=== PATIENT | female | born 1995 | race Caucasian/White ===

== ENCOUNTER 2021-08-24 22:01 | Emergency (ER) | payer BC, SELFPAY ==
--- NOTE | ~2021-08-24 | XR_ITS ---
EXAMINATION: XR chest 1V portable DATE: 08/24/2021 23:27 INDICATION: Lower limb edema with discoloration. TECHNIQUE: A single frontal view of the chest was obtained. COMPARISON: None. FINDINGS: The chest demonstrates clear lungs without pneumonia, pleural effusion, or pneumothorax. Th e heart size is normal. IMPRESSION: 1. No acute cardiopulmonary disease. Reviewed, dictated and finalized at location A.
[2021-08-24 22:28] VITALS: BP 104/66; PULSE 63; RESP 20; TEMP 36.6; O2SAT 94
[2021-08-24 23:04] LABS: Basophils Percent Auto 0.3 % (0.2-1.2); Eosinophils Absolute Auto 0.5 K/mm3 (0-0.3); Eosinophils Percent Auto 7.9 % (0-4.4); Hematocrit 30.9 % (37.0-47.0); Hemoglobin 10.1 g/dL (12.0-15.0); Immature Granulocyte Absolute 0.01 K/mm3 (0.00-0.031); Immature Granulocyte Percent A 0.2 % (0-0.5); Lymphocytes Absolute Auto 2.01 K/mm3 (0.9-3.2); Lymphocytes Percent Auto 32.5 % (18.3-44.2); Mean Corpuscular HGB Conc 32.7 g/dl (32-36); Mean Corpuscular Hemoglobin 28.6 pg (26-34); Mean Corpuscular Volume 87.5 fl (80-100); Mean Platelet Volume 9.7 fl (7.4-10.4); Monocytes Absolute Auto 0.5 K/mm3 (0.1-0.6); Monocytes Percent Auto 8.1 % (2.6-8.5); Neutrophils Absolute Auto 3.2 K/mm3 (1.3-6.7); Platelet Count Result 214 k/mm3 (150-375); Red Blood Count 3.53 M/mm3 (4.2-5.4); Red Cell Distribution Width 12.9 % (11.5-14.5); White Blood Count 6.2 K/mm3 (4.5-10.0)
[2021-08-24 23:07] LABS: Add Urine Microscopic? YES; Amorphous Sediment Urine Few; Appearance Urine Cloudy (Clear); Bilirubin Urine Negative (Negative); Blood Urine Negative (Negative); Color Urine Yellow (Yellow); Glucose Urine UA Negative (Negative); Ketones Urine Negative (Negative); Leukocyte Esterase Ur Trace LEU/UL (Negative); Mucus Urine Rare /lpf; Nitrate Urine Negative (Negative); Protein Urine 1+ mg/dL (Negative); RBC Urine 0-2 /hpf (0-2); Specific Grav Ur 1.018 (1.001-1.035); Squamous Epithelial Cell Urine Many /hpf (Few); WBC Urine 0-3 /hpf
[2021-08-24 23:12] LABS: Alanine Aminotransferase 22 U/L (4-35); Albumin Level 3.8 g/dL (3.5-5.1); Alkaline Phosphatase 56 U/L (38-126); Anion Gap 4 mmol/L (8-16); Aspartate Amino Transferase 42 U/L (14-36); Bilirubin,Total 0.4 mg/dL (0.2-1.3); Blood Urea Nitrogen 12 mg/dL (7-17); Calcium 8.8 mg/dL (8.4-10.2); Carbon Dioxide 31 mmol/L (22-30); Chloride 108 mmol/L (98-107); Estimated CRCL calculation 92 ml/min; Estimated Glomerular Filt Rate > 60; Glucose 105 mg/dL (65-110); Potassium 4.4 mmol/L (3.4-5.0); Sodium 143 mmol/L (137-145)
[2021-08-24 23:19] LABS: NT Pro B Type Natriuretic Pept 702 pg/mL (5-100)
--- NOTE | 2021-08-24 23:29 | ECG_ITS ---
Measurements Intervals [place] Rate: 54 P: 16 IA: 122 QRS: 50 QRSD: 94 T: 32 QT: 440 QTc: 420 Interpretive Statements SINUS BRADYCARDIA BASELINE ARTIFACT- V2-V5 BORDERLINE ECG Electronically Signed On 08-25-2021 6:51:39 CDT by Jose Alberto D.O.
--- NOTE | 2021-08-24 23:55 | ED.GENADULT ---
HPI - General Adult General Chief complaint: Extremity Problem,Nontraumatic Stated complaint: lower extremity edema Time Seen by Provider: 08/24/21 22:32 Source: RN notes reviewed History of Present Illness HPI narrative: Patient presents emergency department from home for swelling of the bilateral lower extremities patient states symptoms began approximately 2 days ago. She states that with this she has noted some intermittent tingling in her right thigh she denies any pain in the right thigh and she denies any tingling in the bilateral lower extremities patient states she has had a kidney infection before in the past 1 to make sure she did have a kidney infection she denies any fevers or chills chest pain shortness of breath abdominal pain nausea vomiting or any other symptoms. Patient does admit to IV drug use and states that she has been sober and recently restarted using IV drugs Related Data Allergies Allergy/AdvReac Type Severity Reaction Status Date / Time No Known Allergies Allergy Unverified 04/26/14 15:03 Review of Systems Review of Systems: Gen.: Denies fevers or chills Eyes: Denies eye pain or visual change ENT: Denies congestion Respiratory: Denies shortness of breath or cough CV: Denies chest pain or palpitations GI: Denies abdominal pain nausea, emesis or diarrhea denies burning, urgency, frequency or hematuria Musculoskeletal: See HPI Neuro: Reports tingling in left thigh denies any other numbness Skin: Denies rash Except as documented, all other systems reviewed and negative [facility] Past Medical History Medical History (Updated 08/25/21 @ 00:52 by Chris Bourgeois DO) Patient denies significant medical history Social History Social History (Updated 08/25/21 @ 00:17 by Chris Bourgeois DO) Substance use type: IV drugs Exam Narrative: APPEARANCE: No acute distress, nontoxic, resting in bed EYES: EOMI HEENT: Normocephalic, atraumatic, OMM RESPIRATORY: No respiratory distress Clear to auscultation bilaterally with no rhonchi wheezing or rales. CARDIOVASCULAR: Regular rate and rhythm without murmurs rubs or gallops. ABDOMINAL: Soft, nontender, nondistended, no rebound or guarding MUSCULOSKELETAl: Moves all extremities. No clubbing, cyanosis 3+ edema the bilateral lower extremities bilateral calves are soft nontender bilateral dorsalis pedis pulse 2+ NEURO: Awake and alert. Following commands, speech normal, no focal deficits equal pinprick sensation in the bilateral lower extremities from the thighs down to the feet, muscle strength 5 out of 5 in bilateral lower extremities SKIN:: Warm, dry. No rashes lesions or abrasions PSYCHIATRIC: Normal affect/mood, Course Course Emergency Course: Discussed with Dr. Sommers for hospitalist service at this time no chest pain or shortness of breath feels like the patient may be discharged with a echocardiogram set up as an outpatient for further evaluation of endocarditis : Discussed with Dr. Suarez primary care physician international student counselor agrees with plan for follow-up as an outpatient Discussed with patient results of workup and diagnosis. Discussed need for follow-up with primary care, proper use of medication, and reasons to return to the emergency department. Patient understands and agrees to current treatment plan discussed with patient concern with elevated BNP that need to rule out endocarditis need for outpatient echo all questions answered Vital Signs Vital signs: Vital Signs Temperature 97.8 F 08/24/21 22:28 Pulse Rate 63 08/24/21 22:28 Respiratory Rate 20 08/24/21 22:28 Blood Pressure 104/66 08/24/21 22:28 Pulse Oximetry 94 08/24/21 22:28 Temperature 97.8 F 08/24/21 22:28 Pulse Rate 63 08/24/21 22:28 Respiratory Rate 20 08/24/21 22:28 Blood Pressure 104/66 08/24/21 22:28 Pulse Oximetry 94 08/24/21 22:28 Medical Decision Making MDM Narrative Medical decision making narrative: Patient presents for swelling in the bilater
[2021-08-24 23:58] LABS: Troponin I < 0.012 ng/mL (0.000-0.034)
== END 2021-08-25 01:05 | disposition home or self-care (01) ==
PROVIDERS: Emergency Provider Emergency Medicine
DX: R60.0 Localized edema (principal)
CPT/HCPCS: 36415; 71045; 80053; 81001; 81025; 83735; 83880; 84484; 85025; 93005; 99284

== ENCOUNTER 2022-03-02 12:29 | Emergency (ER) | payer BC, SELFPAY ==
[2022-03-02 12:41] VITALS: BP 112/65; PULSE 96; RESP 16; TEMP 36.8; O2SAT 92
--- NOTE | 2022-03-02 13:38 | ED.ABDPAIN ---
HPI - Abdominal Pain General Chief Complaint: Abdominal Pain Stated Complaint: abdominal pain Time Seen by Provider: 03/02/22 13:05 Source: patient History of Present Illness HPI narrative: Patient presents with pelvic pain and vaginal bleeding. She reports she has had pain and vaginal discharge for the past 3 days it feels like it is getting worse so she came to the ER for evaluation. She reports dark red discharge denies any vaginal itching or burning she does report some lower abdominal/pelvic cramping. She had her menstrual cycle a couple weeks ago she also reports recent treatment for STIs. Denies any fevers or chills denies any nausea vomiting or diarrhea denies any known sick contacts denies any urinary symptoms Related Data Home Medications Medication Instructions Recorded Confirmed buprenorphine-naloxone 1 tablet SUBLINGUAL BID 03/02/22 03/02/22 Allergies Allergy/AdvReac Type Severity Reaction Status Date / Time No Known Allergies Allergy Unverified 09/02/21 08:30 Review of Systems Review of Systems: CONSTITUTIONAL: Denies fever, chills, or sweats. EYES: Denies visual changes, redness, or discharge. ENT: Denies rhinorrhea, congestion, sore throat, or otalgia. CARDIOVASCULAR: Denies chest pain, palpitations, or edema. RESPIRATORY: Denies cough or dyspnea. GASTROINTESTINAL: Denies abdominal pain, nausea, vomiting, or diarrhea. GENITOURINARY: Denies dysuria or hematuria. SKIN: Denies rash or itching. MUSCULOSKELETAL: Denies back pain, joint pain, or myalgia. NEUROLOGIC: Denies headache, numbness, dizziness, or weakness. PSYCHIATRIC: Denies anxiety or depression. All systems reviewed & are unremarkable except as noted in HPI and below PMFSH Past Medical History Medical History IV drug user Patient denies significant medical history Family History Family History Mother Hypertension Depression Anxiety Father Depression Anxiety Alcohol abuse Sibling Anxiety Depression Alcohol abuse Grandparent Alcohol abuse Diabetes mellitus Hypertension Social History Social History Social History: Caffeine-coffee/tea 2 cups daily Smoking packs per day: 0.5 Smoking cigarettes per day: 10.0 Years smoked: 7 Smoking pack-years: 3.50 Smoking status: Current every day smoker Tobacco type: cigarettes and smokeless tobacco Alcohol intake: never Substance use type: IV drugs Gender identity (if verbalized by the patient): Female Agree to blood products: No Exam Narrative: GENERAL: Well-appearing, well-nourished, and in no acute distress. HEAD: Normocephalic, atraumatic. EYES: PERRLA and EOMI. ENT: Nares clear, no rhinorrhea or epistaxis. Mucous membranes moist. NECK: Supple. No masses. No JVD ABDOMEN: Soft, nontender, nondistended EXTREMITIES: Normal range of motion. No edema. SKIN: Warm, dry, no rash. NEURO: No focal deficits. Alert and oriented x3. PSYCH: Normal mood and affect. Course Reevaluation(s) Reevaluation #1: Patient resting comfortably. Patient did decline pelvic exam and preferred to self swab. She denied any empiric antibiotic treatment would like to follow-up with her results before starting antibiotics that she reports she was recently treated. Labs and work-up reviewed with patient. Patient is comfortable outpatient plan. Date: 03/02/22 Time: 15:16 Vital Signs Vital signs: Vital Signs Temperature 36.8 C 03/02/22 12:41 Pulse Rate 96 03/02/22 12:41 Respiratory Rate 16 03/02/22 12:41 Blood Pressure 112/65 03/02/22 12:41 Pulse Oximetry 92 03/02/22 12:41 Temperature 36.8 C 03/02/22 12:41 Pulse Rate 77 03/02/22 15:46 Respiratory Rate 16 03/02/22 15:46 Blood Pressure 122/74 03/02/22 15:46 Pulse Oximetry 100 03/02/22 15:46 MDM - Abdominal Pain MDM Julio César
[2022-03-02 13:48] LABS: Basophils Percent Auto 0.6 % (0.2-1.2); Eosinophils Absolute Auto 0.3 K/mm3 (0-0.3); Eosinophils Percent Auto 6.7 % (0-4.4); Hemoglobin 13.5 g/dL (12.0-15.0); Immature Granulocyte Absolute 0.01 K/mm3 (0.00-0.031); Immature Granulocyte Percent A 0.2 % (0-0.5); Lymphocytes Absolute Auto 2.22 K/mm3 (0.9-3.2); Mean Corpuscular HGB Conc 34.6 g/dl (32-36); Mean Corpuscular Hemoglobin 29.4 pg (26-34); Mean Platelet Volume 9.7 fl (7.4-10.4); Monocytes Absolute Auto 0.2 K/mm3 (0.1-0.6); Monocytes Percent Auto 4.4 % (2.6-8.5); Neutrophils Absolute Auto 2.2 K/mm3 (1.3-6.7); Neutrophils Percent Auto 44.1 % (45.5-73.1); Platelet Count Result 226 k/mm3 (150-375); Red Blood Count 4.59 M/mm3 (4.2-5.4); Red Cell Distribution Width 12.8 % (11.5-14.5)
[2022-03-02 13:57] LABS: Appearance Urine Clear (Clear); Bilirubin Urine 1+ (Negative); Blood Urine Negative (Negative); Glucose Urine UA Negative (Negative); Ketones Urine Trace mg/dL (Negative); Leukocyte Esterase Ur Negative LEU/UL (Negative); Nitrate Urine Negative (Negative); Protein Urine Negative (Negative); Specific Grav Ur >= 1.030 (1.001-1.035); pH Urine 5.5 (5.0-9.0)
[2022-03-02 14:00] LABS: Alanine Aminotransferase 20 U/L (4-35); Albumin Level 4.2 g/dL (3.5-5.1); Alkaline Phosphatase 52 U/L (38-126); Anion Gap 8 mmol/L (8-16); Aspartate Amino Transferase 33 U/L (14-36); Bilirubin,Total 0.8 mg/dL (0.2-1.3); Blood Urea Nitrogen 15 mg/dL (7-17); Calcium 9.1 mg/dL (8.4-10.2); Carbon Dioxide 26 mmol/L (22-30); Chloride 104 mmol/L (98-107); Estimated CRCL calculation 88 ml/min; Estimated Glomerular Filt Rate > 60; Glucose 103 mg/dL (65-110); Lipase 53 U/L (23-300); Potassium 4.2 mmol/L (3.4-5.0); Sodium 138 mmol/L (137-145)
[2022-03-02 14:06] LABS: Bacteria Urine Trace /hpf; Mucus Urine Few /lpf; RBC Urine 0-2 /hpf (0-2); Squamous Epithelial Cell Urine Moderate /hpf (Few); WBC Urine 0-3 /hpf
[2022-03-02 14:19] LABS: Add Urine Microscopic? YES; Color Urine Dark Yellow (Yellow)
[2022-03-02] MEDS: SODIUM CHLORIDE 0.9% IV 1,000 ML 999 ML IV CONT (14:30)
[2022-03-02 15:46] VITALS: BP 122/74; PULSE 77; RESP 16; O2SAT 100
--- NOTE | 2022-03-06 10:07 | PC.NURSE ---
late entry 03/02/22 1530 ns bolus 1000 cc infused
== END 2022-03-02 15:51 | disposition home or self-care (01) ==
PROVIDERS: Emergency Provider Emergency Medicine; PCP Internal Medicine
DX: N93.9 Abnormal uterine and vaginal bleeding, unspecified (principal); F17.210 Nicotine dependence, cigarettes, uncomplicated; F17.220 Nicotine dependence, chewing tobacco, uncomplicated
CPT/HCPCS: 36415; 80053; 81001; 81025; 83690; 85025; 87070; 87491; 87591; 87808; 96360; 99284; J7030

== ENCOUNTER 2025-10-16 20:19 | Emergency (ER) | payer SELFPAY ==
--- OUTSIDE RECORDS SUMMARY | 2024-07-18 11:00 | XMS_ITS ---
Author Organization [facility] Address [address] [place] [address] Phone [phone] Care Team Providers Care Transport Conductor Name Role Phone Michelle Felder Primary Care Provider [phone] Leilani Kang Unavailable [phone] REASON FOR VISIT Est Psych, depression, MAT Patient Social History Sex Observation Social History Observation Description Sex Observation Female Sexual Orientation Social History Observation Description Sexual Orientation Straight or heterose xual Gender Identity Social History Observation Description Gender Identity Female Encounters Date Time Type Facility Location Provider Diagnosis 07/18/2024 11:00 AM Office Visit [address] [address] Leilani Kang Plan Of Treatment No Information Medical (General) History Medical History History ICD Code Nerve pain M79.2 Opioid use disorder, severe F11.20 Sleep disorder G47.9 Opioid use disorder F11.99 Tobacco dependence F17.200 Surgical History Surgery Date(Month/Year) c section 04/2024 Hospitalization History Reason Date(Month/Year) c section 04/2024 Progress Notes * Samina BORRERO KDOB:[birth year] (30 yo F)Acc No.[id number]:07/18/2024 UNLOCKED PROGRESS NOTE Patient: Samina JAQUEZ Provider: Angélica KANG, FARHAN, FEATHER MAKER-C, PMHNP-BC :1995 A ge:29 Y S ex:Female Date:07/18/2024 Address:[address] [place], [place] [id number] Pcp:Michelle Felder Subjective: * Chief Complaints: * 1 . Est Psych, depression, MAT Patient. * Screening: * * Medical History: Objective: * Vitals: Assessment: Plan: * Treatment: * * Electronic signature of Maricarmen Kang on 10/16/2025 at 08:21 PM [employer] Sign off status: Pending * Provider: FARHAN ROCHE, FEATHER MAKER-C, PMHNP-BC Date: 0 07/18/2024 Generated for Linda reyes/Elise/eTransmitting on: 1 12/17/2024 08:21 PM [employer]
--- OUTSIDE RECORDS SUMMARY | 2025-10-16 20:21 | XMS_ITS | Clinical Summary ---
Author Organization [facility] Address [address] [place] [address] Phone Care Team Providers Care Software Publisher Name Role Phone Provider, None Primary Care Provider Unavailabl e Allergies No known active allergies Medications * This document contains information received from the source organization and may not represent a complete record from that organization. No known medications Social History Tobacco Use Types Packs/Day Years Used Date Smoking Tobacco: Never Assessed Comments Unknown Sex and Gender Information Value Date Recorded Sex Assigned at Not on file Legal Sex Female 11:32 AM CDT Gender Identity Not on file Sexual Orientation Not on file Last Filed Vital Signs Vital Sign Reading Time Taken Comments Blood Pressure 90/47 10/29/2023 4:07 AM FRAME [employer] PATTERN SUPERVISOR Pulse 47 10/29/2023 4:07 AM FR[employer] SUPERVISOR Temperature 37.2 C (99 F) 10/29/2023 4:07 AM FR[employer] SUPERVISOR Respiratory Rate 18 10/29/2023 4:07 AM FR[employer] SUPERVISOR Oxygen Saturation 96% 10/29/2023 4:07 AM FR[employer] SUPERVISOR Inhaled Oxygen Concentration - - Weight 63.5 kg (140 lb) 10/26/2023 1:20 PM [employer] SUPERVISOR Height 162.6 cm (5' 4) 10/26/2023 1:20 PM FR[employer]TERN SUPERVISOR Body Mass Index 24.03 10/26/2023 1:20 PM FRAME [employer]TERN SUPERVISOR Plan of Treatment Health Maintenance Due Date Last Done Comments Hepatitis C Virus (HCV) Screening 1995 Varicella Immunization (1 of 2 - 13+ 2-dose series) 2010 Pap Smear 2018 Human Papillomavirus (HPV) Immunization (1 - 3-dose SCDM series) 02/01/2024 Influenza Immunization (#1) 2025 SARS-COV-2 Immunization ( season) 2025 Respiratory Syncytial Virus (RSV) Immunization (Adult) (1 - 1-dose 75+ series) 02/01/2072 Hepatitis B Immunization Completed 000, 1997, 1997 Pneumococcal Immunization Combined Aged Out 12/07/2000 No longer eligible based on patient's age to complete this topic DTaP/Tdap/Td Immunization Discontinued 2006, 06/27/2002, 12/08/2000, Additional history exists TdaP Immunization Completed 07/04/2007 Meningococcal Immunization (ACWY) Aged Out No longer eligible based on patient's age to complete this topic Rotavirus Immunization Aged Out No lo nger eligible based on patient's age to complete this topic Insurance MEDICAID [employer] Advance Directives * Full Code (Latest Code Status on File) Date Activated Date Inactivated Comments 10/26/2023 1:48 PM 10/29/2023 11:48 AM CPR-Full Treatment: FULL ARREST: Attempt Resuscitation/CPR wit intubation and mechanical ventilation. PRE-ARREST: Use entire range of life support measures to stabilize the patient. Care Teams Software Publisher Relationship Specialty Start Date End Date Provider, None [place] PCP - General 10/27/23
--- OUTSIDE RECORDS SUMMARY | 2025-10-16 20:21 | XMS_ITS | Clinical Summary ---
Author Organization [facility] Address [address] [place] [address] Care Team Providers Care Environmental Studies Faculty Member Name Role Phone Caron Regalado MD Unavailable [phone] No, Physician Primary Care Provider [phone] Allergies No known active allergies Medications PNV #[id number] acid-dha 35 mg iron-5 mg iron-1 mg capsule Take by mouth daily Active buprenorphine (SUBUTEX) 2 mg tablet, sublingual Place 6 tablets (12 mg total) under the tongue daily 6 tablet 04/23/20 Active Additional Information Patient taking differently: 18 mgsublingual Daily, 8mg in AM2mg in [id number] at night, Indications: Prevention of Opioid Abuse, Reported on 10/08/2025 naloxone (NARCAN) 4 mg/actuation spray,non-aero yaya Administer 1 spray into affected nostril(s) as needed for opioid reversal or respiratory depression Call 911. Administer a single spray in one nostril. Repeat every 3 minutes as needed if no or minimal response. 1 each 04/23/20 25 Active ondansetron (ZOFRAN) 4 mg tablet Take 1 tablet (4 mg total) by mouth 2 (two) times a day as needed for nausea 20 tablet 5 05/01/20 25 Active aspirin 81 mg chewable tablet Take 1 tablet (81 mg total) by mouth daily 30 tablet 05/01/20 25 026 Active prochlorperazi ne (COMPAZINE) 5 mg tablet Take 1 tablet (5 mg total) by mouth every 6 (six) hours as needed for nausea or vomiting 20 tablet 05/02/20 Active vitamin ferrous fumarate-folic () 28 mg iron- 800 mcg tablet Take 1 tablet by mouth daily 30 tablet 06/03/20 025 Discontinued Active Problems Problem Noted Date Diagnosed Date Post-term , 40-42 weeks of gestation 40 weeks gestation of 10/08/2025 Previous delivery affecting 0 04/23/2025 Assessment & Plan (04/23/2025 4:55 PM CDT): Will plan for repeat at term 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 Plan: See assessment and plan for opioid dependence withdrawal Hepatitis C 04/19/2024 Overview (05/02/2025): 05/02/25- negative viral load. Normal CMP will plan to repeat q trimester. We discussed treatment during . She said she checked and was told not a candidate since she has not been sober for 6m. Assessment & Plan (05/01/2025 10:20 AM CDT): To cmp and viral load Assessment & Plan (04/23/2025 4:44 PM CDT): She will need cmp and viral load Assessment & Plan (05/03/2024 11:22 PM CDT): New diagnosis during last admission. Patient provided with resources during last admission. Declines to answer any questions about follow-up at this time. Potentially secondary to history of substance abuse and possible shared equipment. LFTs reassuring on admission. Plan: Recommend substance use cessation. Recommend outpatient follow-up Supervision of other normal , antepartu m 02/02/2024 Overview (06/03/2025): 06/03/25- anatomy scan completed. Assessment & Plan (04/23/2025 4:47 PM CDT): Hopefully she will come back to complete her nob visit. Tobacco use 02/02/2024 Assessment & Plan (04/23/2025 4:47 PM CDT): Need to review this Assessment & Plan (05/03/2024 11:27 PM CDT): Chronic. Plan: Recommend cessation. Continue nicotine 7 mg daily. Assessment & Plan (02/09/2024 5:24 PM CDT): The patient was encouraged to stop smoking. Techniques for smoking cessation were discussed to the patient's level of interest. We did discuss that I would rather her smoke tobacco then fentanyl and methamphetamines Opioid abuse 02/02/2024 Overview (08/19/2025): 02/06/24- uds positive for fentanyl, methamphetamines, and benzodiazepines. 08/19/25- per Loretta the pts drug screen for court 08/05/25 was positive for amphetamines. Carmenza contacted me earlier today to let me know she relapsed. Assessment & Plan (04/23/2025 4:46 PM CDT): Subutex filled today at the request of Carmenza from [facility] so that she can get in to [place]. She seems to be struggling with being back in the area with her partner still using. Support given. When she has more time, we will talk about the risk/benefits of taking this during . Will need extra usg and nst in the 3rd trimester. Not sure if she will be taking this baby home with her Will try to make arrangements before delivery if not. Good chance it will have a prolonged hospital stay Assessment & Plan (05/03/2024 11:16 PM CDT): See assessment and plan for opiate dependence with withdrawal. Resolved Problems Problem Noted Date Diagnosed Date Resolved Date Polysubstance (including opi oids) dependence w/o physiol dependence 09/05/2024 04/23/2025 Opioid dependence with withdrawal 05/03/2024 04/23/2025 Assessment & Plan (05/03/2024 11:19 PM CDT): Chronic. Repeat admission. Patient not participating in care at this time. Per [facility], patient potentially interested inpatient rehab. Non candidate for Suboxone at this time given no plans for follow up on discharge. UDS positive on admission. Plan: [facility] protocol in place. Continue scheduled Librium with taper. Ativan p.r.n.. Continue folate, thiamine and multivitamin. [facility] and social work consulted, appreciate further recommendations. Encounter for routine follow-up 05/03/2024 04/23/2025 Assessment & Plan (05/03/2024 11:21 PM CDT): S/p section 6/5. Limited care. Presently declines to answer any questions. store mgr on consult, appreciate recommendations. Plan: Management as per store mgr Antepartum anemia 05/03/2024 04/23/2025 Assessment & Plan (05/03/2024 11:24 PM CDT): Previously gravid. Discharged 04/20 with hemoglobin 7.7. Hemoglobin on admission of 9.5 indicates normal improvement. Plan: Monitor CBC Management as per store mgr Transfuse if less than 7 or becomes symptomatic BMI 30.0-30.9,adult 05/03/2024 04/23/20 Assessment & Plan (05/03/2024 11:25 PM CDT): BMI 30.49 on admission. . Plan: Recommend continued healthy lifestyle Recommend substance use cessation 39 weeks gestation of 04/18/2024 04/23/2025 Assessment & Plan (04/19/2024 2:58 AM CDT): S/p . Plan per obstetrics team. Late care 02/09/2024 Overview (02/09/2024): She has not a good candidate for elective induction. Assessment & Plan (02/09/2024 5:25 PM CDT): She has not a good candidate for elective induction. Acute cystitis without hematuria 02/06/2024 04/23/2025 Overview (02/06/2024): 02/06/24- ecoli Opioid withdrawal 03/13/2019 02/02/2024 Acute cystitis without hematuria 03/13/2019 02/02/2024 Opioid withdrawal 12/01/2018 04/23/2025 Assessment & Plan (04/19/2024 6:03 AM CDT): Patient in opioid and methamphetamine withdrawal with last use 2-3 days prior. Vitals stable. No plans to breastfeed. Had been offered suboxone previously but patient declined as she was not in withdrawal at that time. - Ativan 2mg IV x1 now - Suboxone taper per orders - Librium 25 mg q4h prn - [facility] protocol - Transfer to medical floor - Supplements folate, Thiamine, multivitamin - IV fluids as needed - Zofran for nausea - PPI - WHO and social work consulted Assessment & Plan (02/09/2024 5:25 PM CDT): Carmenza from [facility] is with the patient today Apparently there is a place in [place] that can do monitored opioid withdrawal for women They are working on getting Chichi a bed there As Chichi is at high-risk for changing her mind, I have offered to admit her overnight and treat her symptomatically She is in agreement and would like to do this. Monitor the baby throughout the night. Assessment & Plan (12/01/2018 3:02 PM WASHERY ENGINEER): . Acute cystitis without hematuria 12/01/2018 02/02/2024 Overview (08/27/2025): 04/2025- kerry is negative. Encounters Date Type Department Care Team Description 10/15/2025 Results Follow-Up [facility] [address] [facility] [address] [place] [address] Caron Regalado MD Surgical pathology 10/09/2025 Documentation [facility] [address] [place], [place] [phone] Bernadette Marquez 10/09/2025 Documentation [facility] [address] [place], [place] [phone] Bernadette Marquez 10/09/2025 Documentation [facility] [address] [place] [phone] Bernadette Marquez 10/08/2025 6:50 AM WASHERY ENGINEER Anesthesia Event [address] [address] Anne De La Garza MD Riddle, Rachel Marie, CRNA 10/08/2025 5:08 AM WASHERY ENGINEER - 10/09/2025 5:15 PM WASHERY ENGINEER Hospital Encounter [address] [phone] Caron Regalado MD Durham, Rachel Elizabeth, MD Amphetamine abuse (HCC) (Primary Dx); H/O section; Post-term , 40-42 weeks of gestation [O48.0]; 40 weeks gestation of [Z3A.40]; Previous delivery affecting [O34.219]; Hepatitis C virus infection without hepatic coma, unspecified chronicity [B19.20]; Opioid abuse [F11.10] Discharge Disposition: Left Against Medical Advice 10/08/2025 4:45 AM WASHERY ENGINEER - 10/08/2025 6:12 AM WASHERY ENGINEER Surgery [address] [address] Anne De La Garza MD REPEAT SECTION 10/08/2025 Documentation [facility] [address] [place] [address] Bernadette Marquez 10/08/2025 Telephone [facility] [address] [facility] [address] [place] [address] Marce Renae RN Positive Hep C Result 10/08/2025 Telephone [facility] [address] [place] [address] Anne De La Garza MD 09/04/2025 Documentation [facility] [address] [place] [phone] Bernadette Marquez 09/04/2025 Documentation [facility] [address] [place] [phone] Bernadette Marquez 08/27/2025 12:22 PM CDT - 08/27/2025 3:56 PM CDT Emergency [facility] Emergency Department [address] [place] [address] Discharge Disposition: Left Against Medical Advice 08/20/2025 Documentation [facility] [address] [place] [phone] Bernadette Marquez 08/19/2025 Telephone [facility] [address] [facility] [address], [place] [address] Marce Renae, LASHELL Drug Screening 08/19/2025 Documentation [facility] [address] [place] [phone] Bernadette Marquez 08/16/2025 Documentation [facility] [address] [place] [phone] Bernadette Marquez 08/15/2025 Documentation [facility] [address] [place] [phone] Bernadette Marquez 08/06/2025 Telephone [facility] [address] [facility] [address] [place] [address] Danya Rapp NP Appointment Reminder Call 07/29/2025 Telephone [facility] [address] [facility] [address] [place] [phone] Caron Regalado MD Appointment Reminder Call 07/26/2025 [facility] [address] [place] [phone] ShaikhBasim agrawal from Last 3 Months Surgical History Surgery Date Site/Laterality Comments SECTION Medical History Medical History Date Comments Hepatitis C Family History Medical History Relation Name Comments No Known Problems Father Diabetes Maternal Grandfather No Known Problems Mother Cancer Neg Hx no colon, breas t or revenue research analyst cancer no change cmt 05/01/25 Relation Name Status Comments Father Alive Maternal Grandfather Mother Alive Social History Tobacco Use Types Packs/Day Years Used Date Smoking Tobacco: Every Day Cigarettes 0.5 11.9 Started: 2013 Vaping Started: 2020 Passive Smoke Exposure: Current Smokeless Tobacco: Never Tobacco Cessation:Ready to Q uit: No; Counseling Given: Yes Alcohol Use Standard Drinks/Week Comments Not Currently 0 (1 standard drink = 0.6 oz pur e alcohol) occasional Social Connection and Isolation Panel Answer Date Recorded In a typical week, how many times do you talk on the phone with family, friends, or neighbors? More than three times a week 09/05/2024 How often do you get togethe r with friends or relatives? More than three times a week 09/05/2024 How often do you attend chur ch or islam services? 1 to 4 times per year 09/05/2024 Do you belong to any clubs o r organizations such as hoahaoism groups, unions, fraternal or athletic groups, or school groups? Yes 09/05/2024 How often do you attend meet ings of the clubs or organizations you belong to? 1 to 4 times per year 09/05/2024 Are you , , di vorced, , never , or living with a partner? Never 09/05/2024 Overall Financial Resource Strain (CARDIA) Answe r Date Recorded How hard is it for you to pa y for the very basics like food, housing, medical care, and heating? Hard 09/05/2024 PHQ-2 Answer Date Recorded PHQ-2 Total Score 0 10/09/2025 PRAPARE - Transportation Answer Date Re corded In the past 12 months, has l ack of transportation kept you from medical appointments or from getting medications? Yes 08/15 In the past 12 months, has l ack of transportation kept you from meetings, work, or from getting things needed for daily living? Yes 09/05/2024 Housing Stability Vital Sign Answer Antelmo e Recorded In the last 12 months, was t here a time when you were not able to pay the mortgage or rent on time? No 02/02/2024 In the last 12 months, how many places have you lived? 1 02/02/2024 In the last 12 months, was t here a time when you did not have a steady place to sleep or slept in a fci (including now)? No 02/02/2024 PHQ-9 Answer Date Recorded PHQ-9 Total Score 16 09/05/2024 Housing Stability Vital Sign Answer Antelmo e Recorded In the last 12 months, was t here a time when you were not able to pay the mortgage or rent on time? Yes 09/05/2024 In the past 12 months, how m any times have you moved where you were living? 0 09/05/2024 At any time in the past 12 m onths, were you homeless or living in a fci (including now)? No 09/05/2024 Humiliation, Afraid, Rape, and Kick questionnair e Answer Date Recorded Within the last year, have y ou been afraid of your partner or ex-partner? No 10/09/2025 Within the last year, have y ou been humiliated or emotionally abused in other ways by your partner or ex-partner? No Within the last year, have y ou been kicked, hit, slapped, or otherwise physically hurt by your partner or ex-partner? No 10/09/2025 Within the last year, have y ou been raped or forced to have any kind of sexual activity by your partner or ex-partner? No 10/09/2025 Social Connection and Isolation Panel Answer Date Recorded In a typical week, how many times do you talk on the phone with family, friends, or neighbors? More than three times a week 10/09/2025 How often do you get togethe r with friends or relatives? More than three times a week 10/09/2025 How often do you attend chur or islam services? Never 10/09/2025 Do you belong to any clubs o r organizations such as hoahaoism groups, unions, fraternal or athletic groups, or school groups? No 10/09/2025 How often do you attend meet ings of the clubs or organizations you belong to? Never 10/09/2025 Are you , , di vorced, , never , or living with a partner? Living with partner 10/09/2025 AUDIT-C Answer Date Recorded Q1: How often do you have a drink containing alcohol? Never 10/09/2025 Q2: How many drinks containi ng alcohol do you have on a typical day when you are drinking? Patient does not drink Q3: How often do you have si x or more drinks on one occasion? Never 10/09/2025 Overall Financial Resource Strain (CARDIA) Answe r Date Recorded How hard is it for you to pa y for the very basics like food, housing, medical care, and heating? Not hard at all 10/09/2025 [facility] Occupat ional Health - Occupational Stress Questionnaire Answer Date Recorded Do you feel stress - tense, restless, nervous, or anxious, or unable to sleep at night because your mind is troubled all the time - these days? Only a little 10/09/2025 Exercise Vital Sign Answer Date Recorde d On average, how many days pe r week do you engage in moderate to strenuous exercise (like a brisk walk)? 7 days 10/09/2025 On average, how many minutes do you engage in exercise at this level? 60 min 10/09/2025 Hunger Vital Sign Answer Date Recorded Within the past 12 months, y ou worried that your food would run out before you got the money to buy more. Never true 10/09/20 25 Within the past 12 months, t he food you bought just didn't last and you didn't have money to get more. Never true 10/09/2025 PRAPARE - Transportation Answer Date Re corded In the past 12 months, has l ack of transportation kept you from medical appointments or from getting medications? No 09/15 In the past 12 months, has l ack of transportation kept you from meetings, work, or from getting things needed for daily living? No 10/09/2025 Housing Stability Vital Sign Answer Antelmo e Recorded In the last 12 months, was t here a time when you were not able to pay the mortgage or rent on time? No 10/09/2025 In the past 12 months, how m any times have you moved where you were living? 0 10/09/2025 At any time in the past 12 m [facility], were you homeless or living in a fci (including now)? No 10/09/2025 [facility] Utilities Answer Date Recorded In the past 12 months has e electric, gas, oil, or water company threatened to shut off services in your home? No 10/09/2025 Cum[place] Depression Scale Answer Date Recorded Cumming Depression Scale Total 2 10/09/2025 The thought of harming myself has occurred to me . Never 10/09/2025 Personal Safety Answer Date Recorded Have you ever been in or are you currently in a harmful physical or emotional relationship or is someone making you feel afraid or unsafe? Denies 10/08/2025 Comments No Sex and Gender Information Value Date Recorded Sex Assigned at Not on file Legal Sex Female 8:47 PM WASHERY ENGINEER Gender Identity Not on file Sexual Orientation Not on file Obstetrics History Para Term AB IAB SAB Ectopic Multiple Livin g Live Births 4 3 3 0 3 3 Date Outcome GA Total Labor Labor/2nd/3rd Weight Sex Type Anes PTL Evon A1 A5 Name Clin 2013 Term 4.054 kg (8 lb 15 oz) F Vag-S pont Epidur al Livin g Analei gh [facility] 2023 Term 39w 2d 2h 46m 2h 10m/0h 35m/0h 01m 2.854 kg (6 lb 4.7 oz) M C-Sec tion Epidur al,Gen eral N Livin g 8 9 Tank Mauro MD Complications:Other (Comment ) Delivery [facility] 2024 Term 40w 6d 0h 01m 0h 01m 2.78 kg (6 lb 2.1 oz) F C-Sec tion Spinal ,Gener al N Livin g 9 9 Sergo bonds, Claude ross MD Delivery [facility] Comments No HTN or DM. No PTL Summary Episode Dates Number of Fetuses Estimated Date of Delivery 04/23/2025 - Present (10/16/2025) 1 10/02/2025 (set by Caron Regalado MD on 04/23/2025 based on Ultrasound on 04/23/2025) Dating Summary Based On BECCA GA Diff Last Menstrual Period on 01/21/2025 (Approximate ) 10/28/2025 -3w5d Ultrasound on 04/23/2025 10/02/2025 Working GA:16w6d Ultrasound on 06/03/2025 10/02/2025 Same GA:22w5d Overview and Plan :Grande Support person:mom riley Pérez - her grandma. Delivery Plans Post-Delivery Plans Planned delivery method: Feedin g intentions:Formula Planned anesthesia:Epidural Acceptable blood products:All Overview The pt was asked if she had her Advance Care Planning in place as she is at the beginning of her . She does not. She is here today alone She wants Baldemar Plata, her mom, to make decisions for her. She was encouraged to go to the My Chart portal and find the ACP site. She was encouraged to appoint the person she would want to make decisions for her if she can not. She was asked to appoint a second person in case the first is not available. We discussed that there are questions that they can go through to make sure the person knows what her wishes would be. I spent <15 minutes in this conversation with her. Caron Regalado MD 05/01/25 Vitals Pregravid Weight Height TWG (As of 10/16/2025) Pregrav id BMI 162.6 cm (5' 4) Date GA Fund Present FHR Mvmt BP Weight Edema Alb Glu Ket Dil/ Eff/Sta 5 40w6d Inpatient data not displayed here. See encounter summary. Notes Progress Notes - Hospital En counter - 10/09/2025 - GA:40w6d 10/09/2025 - 40w6d - Anne De La Garza MD Obstetrics Progress Note Events No events Subjective Pain: denies need for pain medication Bleeding: lochia minimal PO's: had some N/V yesterday, taking regular diet this AM Voiding: without difficulty Ambulating: yes Feeding: bottlefeeding Denies diaphoresis, loose stool, headache Vitals Temp: [36.4 C (97.6 F)] 36.4 C (97.6 F) Pulse: [52-66] 66 Resp: [16] 16 BP: (90-138)/(48-91) 90/48 Physical Exam General: well Fundus: firm, below umbilicus, and nontender Incision: not applicable, (vaginal delivery) Extremities: no edema Data Labs Reviewed and Significant for: Recent Labs Lab Units 10/08/25 0559 WBC K/cumm 14.99* HEMOGLOBIN g/dL 13.0 HEMATOCRIT % 37.4 PLATELETS K/cumm 209 Status Information for the patient's : Beatriz Plata [[id number]] [id number] Problem-based Assessment and Plan Chichi Plata is a 30 y.o. day 1 s/p - repeat, spontaneous labor at 40 wks 1. Post care: meeting all goals 2. Hemodynamics: declines blood draw . Admit H/H WNL and QBL WNL. 3. Pain: controlled. Continue PO meds PRN. 4. PNL: Rh positive. Rubella immune. 5. History of drug use: positive UDS on admission, limited care. DCFS plan now is for them to have primary custody of baby. Had been on suboxone but refusing doses since admission. On initial assessment she was cooperative but then upset when discussed blood draw and stated she just wanted to be left alone and to sleep. Will continue to monitor closely. Anne De La Garza MD 10/09/2025 ERY ENGINEER Progress Notes - Office Visi t - 07/12/2025 - GA:28w2d 07/12/2025 - 28w2d - Danya Rapp NP 28w2d Flu, Covid, RSV vaccination recommended. Rhogam not applicable. 28 week labs ordered. PPD reviewed 0/10 tdap discussed- declines Reviewed anatomy scan. - Contraception- nexplanon. STILL HAS OLD DEVICE IN LEFT ARM. DEEP. Continues on Subutex. She just got a job at [employer]. RTO 2 weeks with . Roula MEYER Cosigned by Caron Regalado MD at 07/23/2025 5:37 PM CDT Progress Notes - Office Visi t - 06/03/2025 - GA:22w5d 06/03/2025 - wd - Caron Regalado MD 22w5d Morning sickness - better Depression scale reviewed 0/10 Labs reviewed - reviewed. Will plan to repeat her cmp and viral load at 28 weeks. To basa- she is taking cfDNA testing? Both negative. Girl. No name yet. Diet and exercise discussed- to spinning babies rto 4 weeks To g to complete anatomy scan- face- done today and all is good. Progress Notes - Office Visi t - 05/01/2025 - GA:18w0d 05/01/2025 - wd - Em Taylor RN Patient desires [facility] testing for prequel and Fores[facility] carrier screen. Tubes given to patient to have drawn with her New OB labs at the lab. Tubes given back to us and we will send out from our office today. Prequel lot #[id number] Ex 01/27/2026 Foresight carrier screen lot # [id number] Ex 01/11/2026 Tacking # [id number] LASHELL Strickland 05/01/2025 - wd - Caron Regalado MD 18w0d Morning sickness - rare nausea. She would like some zofran. Depression scale reviewed 0/10 Labs reviewed - she will do today To basa cfDNA testing? She is wanting both test. False positives and negatives discussed. Diet and exercise discussed- to spinning babies rto 4 weeks To usg to complete anatomy scan- face Her complete exam was done Progress Notes - Office Visi t - 04/23/2025 - GA:16w6d 04/23/2025 - 16w6d - aCron Regalado MD Images from the original note were not included. Initial OB Visit Initial Visit (Patient is here for New OB at 17 weeks per usg today. Patient is a [facility] patient) Subjective: Chichi Plata is a 30 y.o., at 16.6 weejs , based on 2nd trimester U/S who presents for initial visit. She is agitated today as she states she has her BF truck and is late to pick him up. States she went to treatment. Hard to be back here Bf is still using. She got custody of her older baby Now working on the baby. Menstrual History: Patient's last menstrual period was 01/21/2025 (approximate). Sexual History: OB History 4 Para 2 Term 2 AB Living 2 SAB IAB Ectopic Multiple 0 Live Births 2 # Outcome Date GA Labor/2nd Weight Sex Type Anes PTL Lv A1 A5 1 2 Term 05/25/14 4.054 kg (8 lb 15 oz) F Vag-Spont Epidural Living [facility] [facility] Location: Other 3 Term 04/18/24 39w2d 2h 10m / 0h 35m 2.854 kg (6 lb 4.7 oz) M Epidural, General N Living 8 9 Name: Munir Plata Complications: Other (Comment) Location: This Facility Delivering Clinician: Caron Regalado MD 4 Current Obstetric Comments No HTN or DM. No PTL Objective: BP 104/70 (BP Location: Left arm, Patient Position: Sitting) Ht 162.6 cm (5' 4) Wt 162 lb (73.5 kg) LMP 01/21/2025 (Approximate) BMI 27.81 kg/m Physical No physicals filed. See flow sheet for gestation -specific examination and vitals. Assessment: Patient is a 30 y.o., at 16.6 weeks Diagnoses and all orders for this visit: Supervision of other normal , antepartum (Primary) Assessment & Plan: Hopefully she will come back to complete her nob visit. Orders: - Urine culture Urine, clean voided; Future - Vitamin D 25 hydroxy; Future - Varicella Zoster IgG antibody Blood; Future - Type and screen; Future - Rubella IgG antibody Blood; Future - RPR Blood; Future - HIV 1/2 Antibody plus p24 Antigen Blood; Future - Hepatitis C antibody Blood; Future - Hepatitis B Surface Antigen Blood; Future - CBC with auto differential; Future - Drugs of Abuse Screen, Urine with Reflex Confirmation; Future Hepatitis C virus infection without hepatic coma, unspecified chronicity Assessment & Plan: She will need cmp and viral load Opioid abuse (HCC) Assessment & Plan: Subutex filled today at the request of [facility] from [facility] so that she can get in to [place]. She seems to be struggling with being back in the area with her partner still using. Support given. When she has more time, we will talk about the risk/benefits of taking this during . Will need extra usg and nst in the 3rd trimester. Not sure if she will be taking this baby home with her Will try to make arrangements before delivery if not. Good chance it will have a prolonged hospital stay Amphetamine abuse (HCC) Tobacco use Assessment & Plan: Need to review this H/O section Assessment & Plan: Will plan for repeat at term Other orders - buprenorphine (SUBUTEX) 2 mg tablet, sublingual; Place 6 tablets (12 mg total) under the tongue daily - naloxone (NARCAN) 4 mg/actuation spray,non-aerosol; Administer 1 spray into affected nostril(s) as needed for opioid reversal or respiratory depression Call 911. Administer a single spray in one nostril. Repeat every 3 minutes as needed if no or minimal response. Plan: -dating US done today -PNL ordered. We will discuss at her next visit. --H/o - documented LTCS in [facility] -still needs pap and std testing. The results will go to the portal. If she doesn't see them in a week, to call the office. To rto kana so that we can complete her NOB visit. Caron Regalado MD 04/23/2025 Last Filed Vital Signs Vital Sign Reading Time Taken Comments Blood Pressure 90/48 10/09/2025 9:35 AM WASHERY ENGINEER Pulse 66 10/09/2025 9:35 AM WASHERY ENGINEER Temperature 36.4 C (97.6 F) 10/09/2025 9:35 AM WASHERY ENGINEER Respiratory Rate 16 10/09/2025 9:35 AM WASHERY ENGINEER Oxygen Saturation 99% 10/08/2025 10:18 AM WASHERY ENGINEER Inhaled Oxygen Concentration - - Weight 77.3 kg (170 lb 6.4 oz) 07/12/2025 11:22 AM CDT Height 162.6 cm (5' 4) 06/03/2025 10:49 AM CDT Body Mass Index 29.25 06/03/2025 10:49 AM CDT Plan of Treatment Health Maintenance Due Date Last Done Comments Pneumococcal vaccine <65 (2 of 2 - PPSV23, PCV20, or PCV21) 2003 12/07/2000 Varicella Vaccines (1 of 2 - 13+ 2-dose series) 2010 Regular Well Visit/Exam 18-64 2015 DTaP/Tdap/Td Vaccine (6 - Td or Tdap) 07/04/2017 07/04/2007, 06/27/2002, 12/08/2000, Additional history exists HPV Vaccines (1 - 3-dose SCD M series) 02/01/2024 Influenza Vaccine (#1) 2025 Cervical Cancer Screening 05/01/2026 05/01/2025, Depression Screening 10/09/2026 10/09/2025, 10/08/2025, 09/05/2024, Additional history exists Hepatitis C Screening Completed 10/08/2025 , 10/08/2025, 05/01/2025, Additional history exists Medical Devices Implanted Type [employer] Device Identifier Shelf Expiration Date Model / Serial / Lot Other-See Comments Other - see comments Left: Arm Description:[place] Left upp er arm Procedures Procedure Name Priority Date/Time Associated Diagnosis Comments SURGICAL PATHOLOGY Routine 10/08/2025 8: 46 AM WASHERY ENGINEER CO AN ELECTIVE ENDOTRACHEAL AIRWAY Routine 10/08/2025 7:21 AM WASHERY ENGINEER ANESTHESIA SPINAL BLOCK Routine 10/08/2025 7:12 AM WASHERY ENGINEER BLOOD GAS, CORD VENOUS STAT 7:12 AM WASHERY ENGINEER BLOOD GAS, CORD ARTERIAL STAT 10/08/2025 7:12 AM WASHERY ENGINEER REPEAT SECTION 10/08/2025 6:48 AM WASHERY ENGINEER Amphetamine abuse (HCC) H/O section FENTANYL CONFIRMATION, MS URINE Routine 10/08/2025 6:00 AM WASHERY ENGINEER AMPHETAMINE, URINE, CONFIRMATION Routine 10/08/2025 6:00 AM WASHERY ENGINEER B CHECK SAMPLE STAT 10/08/2025 6:00 AM WASHERY ENGINEER DRUG SCREEN, URINE L AND D WITH REFLEX CONFIRMATION Routine 10/08/2025 6:00 AM WASHERY ENGINEER REFLEX HEPATITIS C RNA STAT 5:59 AM WASHERY ENGINEER EGFR STAT 10/08/2025 5:59 AM WASHERY ENGINEER RAPID HIV 1/2 AG/AB COMBO Routine 10/08/2025 5:59 AM WASHERY ENGINEER DIFFERENTIAL AUTO STAT 10/08/2025 5:5 9 AM WASHERY ENGINEER COMPREHENSIVE METABOLIC PANEL STAT 10/08/2025 5:59 AM WASHERY ENGINEER TYPE AND SCREEN STAT 10/08/2025 5:59 AM WASHERY ENGINEER CBC WITH AUTO DIFFERENTIAL STAT 10/08/2025 5:59 AM WASHERY ENGINEER HEPATITIS PANEL, ACUTE STAT 5:59 AM WASHERY ENGINEER RPR STAT 10/08/2025 5:59 AM WASHERY ENGINEER DRUGS OF ABUSE SCREEN, URINE WITHOUT CONFIRMATION STAT 08/27/2025 1:23 PM CDT URINALYSIS AND REFLEX TO MICROSCOPIC AND CULTURE STAT 08/27/2025 1:23 PM CDT EGFR STAT 08/27/2025 12:58 PM CDT DIFFERENTIAL AUTO STAT 08/27/2025 12: 58 PM CDT ETHANOL STAT 08/27/2025 12:58 PM CDT COMPREHENSIVE METABOLIC PANEL STAT 08/27/2025 12:58 PM CDT CBC WITH AUTO DIFFERENTIAL STAT 08/27/2025 12:58 PM CDT PAP WITH REFLEX TO HIGH RISK HPV Routine 05/01/2025 12:18 PM CDT Supervision of other normal , antepartum 18 weeks gestation of from Last 3 Months or Most Recently Relevant to Health Maintenance Results * Surgical pathology (10/08/2025 8:46 AM WASHERY ENGINEER) Placenta 10/08/2025 8:46 AM WASHERY ENGINEER 10/11/2025 8:46 AM WASHERY ENGINEER Narrative 10/15/2025 4:34 PM WASHERY ENGINEER EPIC results best viewed via link to PDF [facility] Department of Pathology [address] [place] [id number] Note to Patients: This report may contain a detailed description of human tissue sent by a health care provider to the laboratory for pathologic evaluation. The content of this report is essential for diagnosis and may provide important critical findings. This information may be unfamiliar to patients to review without a medical professional present. It is advised that the patient review this report in the presence of a health care provider who can answer questions and explain the details. Final Report Patient Name: CHICHI PLATA Address: [address] [place], [place] [address] [address] Gender: F : 1995 (Age: 30) Service: Obstetrics Location: [facility] Hospital #: [id number] Patient Type: [facility] Taken: 10/08/2025 Received: 10/11/2025 Accessioned: 10/11/2025 Reported: 10/15/2025 Physician(s):Anne De La Garza MD Diagnosis: A. Intrauterine at 40 and 6/7 weeks, section- Meconium stained membranes with marked acute chorioamnionitis Three-vessel umbilical cord with mild phlebitis Term placenta (505 g) with changes suggestive of mild placental insufficiency Lashell Peter M.D. Report Electronically Reviewed and Signed Out By Lashell Peter M.D. 10/15/2025 16:34:27 Specimen(s) Received: A: Placenta 40w6d Microscopic Description: Microscopic examination corroborates the diagnosis. membranes demonstrate dramatically inflamed and necrotic membranes including minute areas of amnion necrosis. Scattered hemosiderin pigment is noted both within the amniotic membrane and deeper within the membranes. The three-vessel umbilical cord shows acute inflammation around the umbilical vein. The placental parenchyma sampled show scattered areas of increased syncytial trophoblasts and small hyperplastic villi, suggestive of mild placental insufficiency. Significant evidence of infarction or placental inflammation is not seen. Clinical History: Poor care. . Gross Description: The specimen is submitted in a single container labeled CHICHI SANAU and placenta. Submitted is a discoid grande placenta with attached umbilical cord and partially attached membranes. The trimmed placenta weighs 505 grams and measures 19.1 x 14.8 x 3.2 cm. The surface shows meconium staining. The maternal surface appears to be complete and intact with a small amount of loosely adherent blood clots that grossly does not appear to compress the disc. Serial cross sections show dark red congested parenchyma. An area of eccentric induration, located at the edge of the disc, is identified, 1.2 cm in greatest dimension. The site of membrane rupture is not discernible. They are opaque with meconium staining. The cord inserts 5.8 cm from the closest edge of the placenta. It measures 22.1 cm in length, 1.4 cm in diameter, contains three blood vessels and the cord spiraling index is within normal limits. Cna Per Diem sections are submitted in 3 cassettes. Ezio Justin/Lashell Peter M.D. REPORT IMAGES AND SCANNED DOCUMENTS, IF INCLUDED, ONLY VIEWABLE IN PDF VERSION OF REPORT The performance characteristics of some immunohistochemical stains, fluorescence in-situ hybridization tests and immunophenotyping by flow cytometry cited in this report (if any) were determined by the Surgical Pathology Department at [facility] as part of an ongoing quality lead program and in compliance with federally mandated regulations drawn from the Clinical Laboratory Improvement Act of 1988 (CLIA '88). Some of these tests rely on the use of analyte specific reagents and are subject to specific labeling requirements by the US Food and Drug Administration. Such diagnostic tests may only be performed in a facility that is certified by the Department of Health and Human Services as a high complexity laboratory under CLIA '88. The FDA has determined that such clearance or approval is not necessary. This test is used for clinical purposes. It should not be regarded as investigational or for research. Nevertheless, federal rules concerning the medical use of analyte specific reagents require that the following disclaimer be attached to the report: This test was developed and its performance characteristics determined by the Surgical Pathology Department [facility]. It has not been cleared or approved by the U. S. Food and Drug Administration. Note for decalcified specimens: This assay has not been validated on decalcified tissues. Results should be interpreted with caution given the possibility of false negativity on decalcified specimens Anne De La Garza MD LAB PATHOLOGY ORDERAB LES Final Result * CO AN ELECTIVE ENDOTRACHEAL AIRWAY (10/08/2025 7:21 AM WASHERY ENGINEER) Farshad Boucher CRNA - 10/08/2025 7:21 AM WASHERY ENGINEER Farshad Alas CRNA 10/08/2025 7:22 AM Airway Patient location: OR Urgency: elective Date/time: 10/08/2025 7:07 AM Indications for airway management: anesthesia Difficult airway: no Staff: Placed by: RADIOLOGIC THERAPIST: Farshad Alas CRNA Emergent airway documentation: Risks and benefits discussed: yes Consent obtained: yes Consent given by: patient Airway prep: Preoxygenated: yes Patient position: sniffing Mask difficulty assessment: 0 - not attempted Spontaneous ventilation during airway: absent Sedation level during airway: GA Final airway details: Final airway type: endotracheal airway Tube type: ETT ETT size: 6.0 mm Cuffed: yes Technique used for successful ETT placement: video laryngoscopy Devices/Methods used in placement: stylet Insertion site: oral Video blade type: Haskins Blade size: 3 Cormack-Lehane (video): grade I - full view of glottis Initial cuff pressure: 25 cm H2O Cuff inflated with: air ETT to teeth: 20 cm Placement verified by: auscultation Airway secured with: silk tape Number of attempts: 1 Additional comments: RSI performed. Smooth, atraumatic intubation. No reflux noted during laryngoscopy. ETT cuff immediately inflated upon tracheal intubation. Anne De La Garza MD ANESTHESIA ORDERABLES Final Result * Spinal Block (10/08/2025 7:12 AM WASHERY ENGINEER) Narrative Anne Stuart CRNA - 10/08/2025 7:12 AM WASHERY ENGINEER Anne Stuart CRNA 10/08/2025 7:12 AM Spinal Block Patient location: OR End time: 10/08/2025 6:58 AM Reason for block: primary anesthetic Staff: Supervising provider: Anne De La Garza MD Placed by: RADIOLOGIC THERAPIST:Anne Stuart CRNA Procedure prep: Preprocedure checklist: patient identified, procedure contraindications assessed, site marked, procedure consent, surgical consent, IV checked, risks, benefits and alternatives discussed, monitors and equipment checked and timeout performed Patient position: sitting Procedure performed while patient: awake Monitoring: oximetry and blood pressure Prep solution: chlorhexadine/alcohol PPE: provider hat/mask, sterile gloves and sterile drape Skin infiltrated with lidocaine 1%: yes Spinal: Approach: midline Introducer used: yes Location: L3-4 Spinal injection: CSF demonstrated, no aspiration of heme and no paresthesias noted Number of attempts: 1 Spinal Needle: Needle type: pencil-tip Needle gauge: 25 G Needle length: 9 cm Assessment: Events: patient tolerated procedure well with no complications Additional comments: On testing spinal, pt feeling sharp pain. Converted to general. Anne De La Garza MD ANESTHESIA ORDERABLES Final Result * Blood Gas, Cord Venous (10/08/2025 7:12 AM WASHERY ENGINEER) pH Cord Parag 7.34 pCO2 Cord Parag 42 mmHg [facility] ([place]) pO2 Cord Parag 39 mmHg [facility] ([place]) Base Excess Cord Parag -3 mmol/L [facility] ([place]) HCO3 Cord Parag (Calc) 22 mmol/L [facility] ([place]) O2 Sat Cord Parag (José Miguel) 80 % [facility] ([place]) Comment: Interpretive Data No Reference Ranges Established Current Interpretive Data was last revised on 2018 Cord blood 10/08/2025 7:12 AM WASHERY ENGINEER 10/08/2025 7:20 AM WASHERY ENGINEER Anne De La Garza MD LAB BLOOD ORDERABLES Final Result Performing Organization Address [facility] de Phone Number TEDDY KEATING ([place]) [address] [place] [address] [place] [address] * Blood Gas, Cord Arterial (10/08/2025 7:12 AM WASHERY ENGINEER) pH Cord Art 7.28 pCO2 Cord Art 52 mmHg [facility] ([place]) pO2 Cord Art 22 mmHg [facility] ([place]) Base Excess Cord Art -4 mmol/L [facility] ([place]) HCO3 Cord Art (Calc) 23 mmol/L [facility] ([place]) O2 Sat Cord Art (José Miguel) 42 % [facility] ([place]) Comment: Interpretive Data No Reference Ranges Established Current Interpretive Data was last revised on 2018 Cord blood 10/08/2025 7:12 AM WASHERY ENGINEER 10/08/2025 7:20 AM WASHERY ENGINEER Anne De La Garza MD LAB BLOOD ORDERABLES Final Result Performing Organization Address City/[facility]/ZIP Co de Phone Number TEDDY KEATING ([place]) [address] [place] [address] [place] [address] * (ABNORMAL) Fentanyl Confirmation, Urine (10/08/2025 6:00 AM WASHERY ENGINEER) Fentanyl Conf, Ur Confirmed Positive(A) Cutoff 0.3ng/mL Comment:Testing performed by : [facility], [address] [place] [address] Acetylfentanyl Conf, Ur Confirmed Positive(A) Cutoff 1 ng/mL [facility] ([place]) Comment:Testing performed by : [facility], [address] [place]., [address] Acrylfentanyl Conf, Ur Does Not Confirm Cutoff 1 ng/mL [facility] ([place]) Comment:Testing performed by : [facility], [address] [place]., [address] Furanylfentanyl Conf, Ur Does Not Confirm Cutoff 1 ng/mL [facility] ([place]) Comment:Testing performed by : [facility], [address] [place]., [address] Fentanyl Metabolite (Norfentanyl) Conf, Ur Confirmed Positive(A) CutOff 5 ng/mL [facility] ([place]) Comment:Testing performed by : [facility], [address] [place]., [address] Xylazine MS Confirmed Positive(A) Cutoff 1 ng/mL [facility] ([place]) Comment: Interpretive Data This test detects the presence or absence of drug compounds using LC Tandem mass spectrometry and is not intended to assess compliance with prescribed medications. While this test is highly specific, false positive and false negative results may occur in very rare circumstances. Contact the laboratory for consultation, if needed. Performance characteristics were determined by the [facility] in a manner consistent with CLIA requirement and has not been cleared or approved by the U.S. Food and Drug Administration. Current interpretive data was last revised 2021. Testing performed by: [facility], [address] [place]., [address] Urine 10/08/2025 6:00 AM WASHERY ENGINEER 10/08/2025 12:38 PM WASHERY ENGINEER us Anne De La Garza MD LAB URINE ORDERABLES Final Result [facility] ([place]) [address] Department [place] [address] * (ABNORMAL) Drug Screen, Urine L and D with Reflex Confirmation (10/08/2025 6:00 AM WASHERY ENGINEER) Amphetamine, ur Screen Positive, presumptive (A) CutOff 500ng/mL Comment: Interpretive Data - Amphetamines: Samples containing greater than 500 ng/mL d-methamphetamine or other cross-reacting amphetamine compounds are reported as positive. Amphetamine immunoassays are subject to significant false positive rates due to cross-reactivity of non-amphetamine drugs. Confirmatory testing required for definitive results. Current Interpretive Data was last reviewed 2023. Barbiturates, ur Not Detected CutOff 200ng/mL [facility] ([place]) Comment: Interpretive Data - Barbiturates: Samples containing greater than 200 ng/mL secobarbital or other cross-reacting barbiturate compounds are reported as positive. False positive and false negative results are possible. Confirmatory testing required for definitive results. Current Interpretive Data was last reviewed 2023. Benzodiazepines, ur Not Detected CutOff 100ng/mL [facility] ([place]) Comment: Interpretive Data - Benzodiazepines: Samples containing greater than 100 ng/mL nordiazepam or other cross-reacting compounds are reported as positive. False positive and false negative results are possible. Confirmatory testing required for definitive results. Current Interpretive Data was last reviewed 2023. Cannabinoids, ur Not Detected CutOff 50 ng/mL [facility] ([place]) Comment: Interpretive Data - Cannabinoids: Samples containing greater than 50 ng/mL delta-9 THC -COOH or other cross- reacting compounds are reported as positive. False positive and false negative results are possible. Confirmatory testing required for definitive results. Current Interpretive Data was last reviewed 2023. Cocaine, ur Not Detected CutOff 150ng/mL [facility] ([place]) Comment: Interpretive Data - Cocaine: Samples containing greater than 150 ng/mL benzoylecgonine or other cross- reacting compounds are reported as positive. False positive and false negative results are possible. Confirmatory testing required for definitive results. Current Interpretive Data was last reviewed 2023. Fentanyl, Ur Screen Positive, presumptive (A) CutOff 5 ng/mL [facility] ([place]) Comment: Interpretive Data - Fentanyl: Samples containing greater than 5 ng/mL norfentanyl, fentanyl, or other cross-reacting fentanyl compounds are reported as positive. False positive and false negative results are possible. Confirmatory testing required for definitive results. Current Interpretive Data was last reviewed 2023. Methadone, ur Not Detected CutOff 300ng/mL [facility] ([place]) Comment: Interpretive Data - Methadone: Samples containing greater than 300 ng/mL d,l-methadone or other cross-reacting compounds are reported as positive. False positive and false negative results are possible. Confirmatory testing required for definitive results. Current Interpretive Data was last reviewed 2023. Opiates, ur Not Detected CutOff 300ng/mL [facility] ([place]) Comment: Interpretive Data - Opiates: Samples containing greater than 300 ng/mL morphine or other cross-reacting compounds are reported as positive. False positive and false negative results are possible. Confirmatory testing required for definitive results. Current Interpretive Data was last reviewed 2023. Oxycodone, ur NOT DETECTED CutOff 100ng/mL [facility] ([place]) Comment: Interpretive Data - Oxycodone: Samples containing greater than 100 ng/mL oxycodone or other cross-reacting compounds are reported as positive. False positive and false negative results are possible. Confirmatory testing required for definitive results. Current Interpretive Data was last reviewed 2023. Phencyclidine, ur Not Detected CutOff 25 ng/mL [facility] ([place]) Comment: Interpretive Data - Phencyclidine: Samples containing greater than 25 ng/mL phencyclidine or other cross-reacting compounds are reported as positive. False positive and false negative results are possible. Confirmatory testing required for definitive results. Current Interpretive Data was last reviewed 2023. Urine Creatinine 238 mg/dL [facility] ([place]) Comment: Interpretive Data Urine Creatinine: < 10 mg/dL is extremely dilute = or > 10 but < 20 mg/dL is dilute = or > 20 mg/dL is normal Current Interpretive Data was last revised on 2018. Urine 10/08/2025 6:00 AM WASHERY ENGINEER 10/08/2025 6:10 AM WASHERY ENGINEER Narrative [facility] ([place]) - 10/08/2025 6:36 AM WASHERY ENGINEER Is patient or admitted for delivery?->Yes Select the indication(s) for ordering drug screen:->Substance abuse during (excludes marijuana) Indicate if consent has been obtained for this test:->Consent obtained Drug of Abuse screening is performed by immunoassay for medical purposes only. This is not to be used for Pain Management purposes. If Detected, confirmation testing will be performed for Amphetamines, Barbiturates, Benzodiazepines, Cannabinoids, Cocaine, Fentanyl, Methadone, Opiates, Oxycodone or Phencyclidine. Anne De La Garza MD LAB URINE ORDERABLES Final Result TEDDY KEATING ([place]) [address] [facility] [place] [address] * Check Sample (10/08/2025 6:00 AM WASHERY ENGINEER) ABO Rh A Positive [facility] ([place]) [facility] OTHER 10/08/2025 6:00 AM WASHERY ENGINEER 10/08/2025 8:26 AM WASHERY ENGINEER Caron Regalado MD LAB BLOOD ORDERABLE S Final Result Performing Organization Address [facility] Co de Phone Number [facility] ([place]) [address] [place] [address] [place] [address] * (ABNORMAL) Amphetamine Confirmation, Urine (10/08/2025 6:00 AM WASHERY ENGINEER) Amphetamine Conf, Ur Confirmed Positive(A) CutOff 150ng/mL Comment:Testing performed by : [facility], [address] [place] [address] Methamphetamine Conf, Ur Confirmed Positive(A) CutOff 150ng/mL [facility] ([place]) Comment:Testing performed by : [facility], [address] [place]., [address] MDA Conf, Ur Does Not Confirm CutOff 150ng/mL [facility] ([place]) Comment:Testing performed by : [facility], [address] [place] [address] MDMA Conf, Ur Does Not Confirm CutOff 50 ng/mL [facility] ([place]) Comment:Testing performed by : [facility], [address] [place]., [address] MDEA Conf, Ur Does Not Confirm CutOff 150ng/mL [facility] ([place]) Comment:Testing performed by : [facility], [address] [place]., [address] MBDB Conf, Ur Does Not Confirm CutOff 150ng/mL [facility] ([place]) Comment: Interpretive Data This test detects the presence or absence of drug compounds using LC Tandem mass spectrometry. While this test is highly specific, false positive and false negative results may occur in very rare circumstances. Contact the laboratory for consultation, if needed. Performance characteristics were determined by the [facility] in a manner consistent with CLIA requirement and has not been cleared or approved by the U.S. Food and Drug Administration. Current interpretive data was last revised on 2021. Testing performed by: [facility], 1 [facility], [address] Urine 10/08/2025 6:00 AM WASHERY ENGINEER 10/08/2025 12:38 PM WASHERY ENGINEER us Anne De La Garza MD LAB URINE ORDERABLES Final Result TEDDY KEATING ([place]) 1 [facility] Department [place] [address] * Reflex Hepatitis C RNA, Quantitative (10/08/2025 5:59 AM WASHERY ENGINEER) [facility] HCV RNA result Not Detected [facility] Comment: The quantifiable range of this assay is 15 IU/mL to 100,000,000 IU/mL (1.18 log IU/mL to 8.00 log IU/mL). Testing was performed by the [facility] [id number] HCV Test ([employer] Testing performed at [facility] Current Interpretive Data was last revised on 2021 Testing performed by: [facility], [address] [place] [address], [place] [address] Blood 10/08/2025 5:59 AM WASHERY ENGINEER 10/08/2025 7:12 PM WASHERY ENGINEER Anne De La Garza MD LAB BLOOD ORDERABLES Final Result [facility] ([place]) 1 [facility] [place] [place] [address] BJ * Rapid HIV 1/2 Ag/Ab Combo (10/08/2025 5:59 AM WASHERY ENGINEER) HIV 1/2 Ag/Ab Rapid Nonreactive Nonreactive Blood 10/08/2025 5:59 AM WASHERY ENGINEER 10/08/2025 6:27 AM WASHERY ENGINEER Anne De La Garza MD LAB BLOOD ORDERABLES Final Result [facility] ([place]) 1 [facility] [place] [employer] [address] * eGFR (10/08/2025 5:59 AM WASHERY ENGINEER) eGFR >90 >=60 mL/min/1. 73 m2 Comment: Interpretive Data Reference Interval Normal >/= 90 mL/min/1.73m2 Mildly decreased* 60 - 89 mL/min/1.73m2 Mildly to moderately decreased 45 - 59 mL/min/1.73m2 Moderately to severely decreased 30 - 44 mL/min/1.73m2 Severely decreased 15 - 29 mL/min/1.73m2 Kidney Failure < 15 mL/min/1.73m2 *Relative to young adult level Estimated glomerular filtration rate is determined by the 2020 CKD-EPI equation recommended by the National Kidney Foundation (A Unifying Approach to GFR Estimation: Recommendations of the NKF-ASK Task Force on Reassessing the Inclusion of Race in Diagnosing Kidney Disease, JASN 2020). The CKD-EPI equation should not be used for patients with unstable renal function and has not been validated in children and those over 70. Current interpretive data was last reviewed 2021. Blood 10/08/2025 5:59 AM WASHERY ENGINEER 10/08/2025 6:06 AM WASHERY ENGINEER us Anne De La Garza MD LAB BLOOD ORDERABLES Final Result [facility] ([place]) 1 [facility] Department [place] [address] * (ABNORMAL) Differential, auto (10/08/2025 5:59 AM WASHERY ENGINEER) Neutrophil abs 12.13(H) 1.50 - 6.50 K/cumm Imm gran abs 0.08 0.00 - 0.10 K/cumm [facility] ([place]) Lymphocyte abs 2.12 0.80 - 3.30 K/cumm [facility] ([place]) Monocyte abs 0.52 0.20 - 0.80 K/cumm [facility] ([place]) Eosinophil abs 0.10 0.00 - 0.50 K/cumm [facility] ([place]) Basophil abs 0.04 0.00 - 0.10 K/cumm [facility] ([place]) Neutrophil pct 80.9 % [facility] R [facility] ([place]) Comment: Interpretive Data Percent cell count reference ranges are not reported, since discordance with absolute values may lead to misinterpretation of CBC data. Current Interpretive Data was last revised on 2018. Imm gran pct 0.5 % [facility] ([place]) Comment: Interpretive Data Percent cell count reference ranges are not reported, since discordance with absolute values may lead to misinterpretation of CBC data. Current Interpretive Data was last revised on 2018. Lymphocyte pct 14.1 % [facility] R [facility] ([place]) Comment: Interpretive Data Percent cell count reference ranges are not reported, since discordance with absolute values may lead to misinterpretation of CBC data. Current Interpretive Data was last revised on 2018. Monocyte pct 3.5 % [facility] ([place]) Comment: Interpretive Data Percent cell count reference ranges are not reported, since discordance with absolute values may lead to misinterpretation of CBC data. Current Interpretive Data was last revised on 2018. Eosinophil pct 0.7 % [facility] R [facility] ([place]) Comment: Interpretive Data Percent cell count reference ranges are not reported, since discordance with absolute values may lead to misinterpretation of CBC data. Current Interpretive Data was last revised on 2018. Basophil pct 0.3 % [facility] ([place]) Comment: Interpretive Data Percent cell count reference ranges are not reported, since discordance with absolute values may lead to misinterpretation of CBC data. Current Interpretive Data was last revised on 2018. Blood 10/08/2025 5:59 AM WASHERY ENGINEER 10/08/2025 6:06 AM WASHERY ENGINEER us Anne De La Garza MD LAB BLOOD ORDERABLES Final Result [facility] ([place]) 1 [facility] Department [place] [address] * (ABNORMAL) CBC with auto differential (10/08/2025 5:59 AM WASHERY ENGINEER) WBC 14.99(H) 3.80 - 9.90 K/cumm Hgb 13.0 11.9 - 15.5 g/dL [facility] ([place]) Hct 37.4 35.6 - 45.5 % [facility] ([place]) Plt 209 150 - 400 K/cumm [facility] ([place]) MPV 9.9 9.1 - 12.3 fL [facility] ([place]) RBC 4.34 3.90 - 5.20 M/cumm [facility] ([place]) MCV 86.2 81.3 - 96.4 fL [facility] ([place]) MCH 30.0 27.1 - 33.3 pg [facility] ([place]) MCHC 34.8 32.3 - 35.7 g/dL [facility] ([place]) RDW CV 13.2 11.1 - 14.9 % [facility] ([place]) RDW SD 41.2 35.7 - 48.1 fL [facility] ([place]) NRBC abs 0.00 0.00 - 0.01 K/cumm [facility] ([place]) Blood 10/08/2025 5:59 AM WASHERY ENGINEER 10/08/2025 6:06 AM WASHERY ENGINEER us Anne De La Garza MD LAB BLOOD ORDERABLES Final Result TEDDY ZURI ([place]) 1 [facility] Department [place] [address] * (ABNORMAL) Hepatitis panel, acute Blood (10/08/2025 5:59 AM WASHERY ENGINEER) Hep A IgM Nonreactive Nonreactive Comment: Interpretive Data: If Hep A IgM Ab is reported as Equivocal, a new sample should be drawn in two weeks for testing. Current interpretive data was last revised on 20. Testing performed by: [address] [address] Hep B core IgM Nonreactive Nonreactive Cesar KEATING ([place]) Comment: Interpretive Data If HepB Core IgM Ab is reported as Equivocal, a new sample should be drawn in two weeks for testing. Current interpretive data was last revised on 20. Testing performed by: [address] [address] Hep C Ab Reactive(A) Nonreactive TEDDY KEATING ([place]) Comment: Critical Result Critical Result called to and read back by Marce Renae (RN) , DATE: 2025-10-08 10:30:51 BY: Tom Jansne Interpretive Data Nonreactive: Antibodies to HCV not detected. Does NOT exclude the possibility of recent exposure to HCV. Equivocal: Equivocal for HCV antibodies. Supplemental molecular testing will be automatically performed to determine infection status in accordance with current CDC screening recommendations. Reactive: Positive for HCV antibodies. This may represent current or past HCV infection. Supplemental molecular testing will be automatically performed to determine current infection status in accordance with current CDC screening recommendations. Interpretive data was last revised on 2020. Testing performed by: [address] [address] HepBsAg Nonreactive Nonreactive TEDDY KEATING ([place]) Comment:Testing performed by : [address] [address] Blood 10/08/2025 5:59 AM WASHERY ENGINEER 10/08/2025 7:41 AM WASHERY ENGINEER Anne De La Garza MD LAB MICROBIOLOGY - GE NERAL ORDERABLES Final Result Performing Organization Address [facility]/ZIP Co de Phone Number BIBMICHELE KEATING ([place]) 1 [facility] Department [place] [address] * RPR Blood (10/08/2025 5:59 AM WASHERY ENGINEER) Pathologist [facility] RPR Nonreactive Nonreactive Comment:Testing performed by : [facility], [address] [place] [address]., [address] Blood 10/08/2025 5:59 AM WASHERY ENGINEER 10/08/2025 7:40 AM WASHERY ENGINEER Anne De La Garza MD LAB MICROBIOLOGY - GE NERAL ORDERABLES Final Result Performing Organization Address [facility] Co de Phone Number TEDDY KEATING ([place]) 1 [facility] [place] [address] * Type and screen (10/08/2025 5:59 AM WASHERY ENGINEER) Pathologist [facility] Diaz, indirect Negative [facility] ([place]) ABO Rh A Positive [facility] ([place]) Blood 10/08/2025 5:59 AM WASHERY ENGINEER 10/08/2025 6:06 AM WASHERY ENGINEER Narrative [facility] ([place]) - 10/08/2025 8:21 AM WASHERY ENGINEER Has the patient had Daratumumab or Isatuximab in the past 6 months?->Unknown Anne De La Garza MD LAB BLOOD BANK TEST O RDERABLES Final Result Performing Organization Address City/[facility]/ZIP Co de Phone Number BIBMICHELE KEATING ([place]) 1 [facility] [place] [address] * (ABNORMAL) Comprehensive metabolic panel (10/08/2025 5:59 AM WASHERY ENGINEER) Pathologist [facility] Sodium 135 135 - 145 mmol/L Potassium, pl 3.9 3.3 - 4.9 mmol/L [facility] ([place]) Chloride 105 97 - 110 mmol/L [facility] ([place]) CO2 12(L) 22 - 32 mmol/L [facility] ([place]) Anion gap 18(H) 2 - 15 mmol/L [facility] ([place]) BUN 11 6 - 25 mg/dL [facility] ([place]) Creatinine 0.69 0.60 - 1.10 mg/dL [facility] ([place]) Glucose 97 70 - 199 mg/dL [facility] ([place]) Comment: Interpretive Data Fasting glucose >/= 126 mg/dl is diagnostic for diabetes. Fasting is defined as no caloric intake for at least 8 hours. Fasting glucose between 100 mg/dl to 125 mg/dl is diagnostic of prediabetes. In a patient with classic symptoms of hyperglycemia or hyperglycemic crisis, a random glucose >/= 200 mg/dl is diagnostic for diabetes. In the absence of unequivocal hyperglycemia, results should be confirmed by repeat testing. The classification and Diagnosis of Diabetes Diabetes Care 202; 46: S19-S40. Current interpretive data was last revised 2022. Calcium 8.3(L) 8.5 - 10.3 mg/dL [facility] ([place]) Bilirubin, total 0.6 0.1 - 1.2 mg/dL [facility] ([place]) Protein, pl 6.5 6.5 - 8.5 g/dL [facility] ([place]) Albumin 3.5 3.5 - 5.0 g/dL [facility] ([place]) Alk phos 193(H) 40 - 130 Units/L [facility] ([place]) ALT 17 7 - 45 Units/L [facility] ([place]) AST 31 10 - 45 Units/L [facility] ([place]) Blood 10/08/2025 5:59 AM WASHERY ENGINEER 10/08/2025 6:06 AM WASHERY ENGINEER us Anne De La Garza MD LAB BLOOD ORDERABLES Final Result [facility] ([place]) 1 [facility] Department [place] [address] * (ABNORMAL) Urinalysis reflex to microscopic and culture Urine (08/27/2025 1:23 PM CDT) Color, ur Yellow Yellow Clarity, ur Clear Clear [facility] ([place]) Specific gravity, ur 1.015 1.003 - 1.030 [facility] ([place]) pH, urine 6.5 [facility] ([place]) Comment: Interpretive Data U rine pH is affected by diet, medications, systemic acid-base disturbances, and renal tubular function. pH may affect urinary stone formation. For example, urine pH below 6.0 may help reduce the tendency for calcium phosphate stones and pH greater than 6.0 may reduce the tendency for uric acid stone formation. Source: [facility] [place] Current Interpretive Data was last revised on 2017 Protein, ur ql Negative Negative [facility] ([place]) Glucose, ur ql Negative Negative [facility] ([place]) Ketones, ur Negative Negative [facility] ([place]) Bilirubin, ur Negative Negative [facility] ([place]) Blood, ur Negative Negative [facility] ([place]) Urobilinogen, ur 2.0(A) <2.0 mg/dL [facility] ([place]) Nitrite, ur Negative Negative [facility] ([place]) Leukocyte esterase, ur Negative Negative [facility] ([place]) UA reflex comment Reflex conditions for microscopic UA and culture not met. [facility] ([place]) Urine 08/27/2025 1:23 PM CDT 08/27/2025 1:26 PM CDT Zeenat Larry NP LAB MICROBIOLOGY - GENERAL OR DERABLES Final Result [facility] ([place]) 1 [facility] Department [place] [address] * (ABNORMAL) Drugs of Abuse Screen, Urine without Confirmation (08/27/2025 1:23 PM CDT) Amphetamine, ur Screen Positive, presumptive (A) CutOff 500ng/mL Comment: Interpretive Data - Amphetamines: Samples containing greater than 500 ng/mL d-methamphetamine or other cross-reacting amphetamine compounds are reported as positive. Amphetamine immunoassays are subject to significant false positive rates due to cross-reactivity of non-amphetamine drugs. Confirmatory testing required for definitive results. Current Interpretive Data was last reviewed 2023. Barbiturates, ur Not Detected CutOff 200ng/mL [facility] ([place]) Comment: Interpretive Data - Barbiturates: Samples containing greater than 200 ng/mL secobarbital or other cross-reacting barbiturate compounds are reported as positive. False positive and false negative results are possible. Confirmatory testing required for definitive results. Current Interpretive Data was last reviewed 2023. Benzodiazepines, ur Not Detected CutOff 100ng/mL [facility] ([place]) Comment: Interpretive Data - Benzodiazepines: Samples containing greater than 100 ng/mL nordiazepam or other cross-reacting compounds are reported as positive. False positive and false negative results are possible. Confirmatory testing required for definitive results. Current Interpretive Data was last reviewed 2023. Cannabinoids, ur Not Detected CutOff 50 ng/mL [facility] ([place]) Comment: Interpretive Data - Cannabinoids: Samples containing greater than 50 ng/mL delta-9 THC -COOH or other cross- reacting compounds are reported as positive. False positive and false negative results are possible. Confirmatory testing required for definitive results. Current Interpretive Data was last reviewed 2023. Cocaine, ur Not Detected CutOff 150ng/mL [facility] ([place]) Comment: Interpretive Data - Cocaine: Samples containing greater than 150 ng/mL benzoylecgonine or other cross- reacting compounds are reported as positive. False positive and false negative results are possible. Confirmatory testing required for definitive results. Current Interpretive Data was last reviewed 2023. Fentanyl, Ur Screen Positive, presumptive (A) CutOff 5 ng/mL [facility] ([place]) Comment: Interpretive Data - Fentanyl: Samples containing greater than 5 ng/mL norfentanyl, fentanyl, or other cross-reacting fentanyl compounds are reported as positive. False positive and false negative results are possible. Confirmatory testing required for definitive results. Current Interpretive Data was last reviewed 2023. Methadone, ur Not Detected CutOff 300ng/mL [facility] ([place]) Comment: Interpretive Data - Methadone: Samples containing greater than 300 ng/mL d,l-methadone or other cross-reacting compounds are reported as positive. False positive and false negative results are possible. Confirmatory testing required for definitive results. Current Interpretive Data was last reviewed 2023. Opiates, ur Not Detected CutOff 300ng/mL TEDDY KEATING ([place]) Comment: Interpretive Data - Opiates: Samples containing greater than 300 ng/mL morphine or other cross-reacting compounds are reported as positive. False positive and false negative results are possible. Confirmatory testing required for definitive results. Current Interpretive Data was last reviewed 2023. Oxycodone, ur NOT DETECTED CutOff 100ng/mL TEDDY KEATING ([place]) Comment: Interpretive Data - Oxycodone: Samples containing greater than 100 ng/mL oxycodone or other cross-reacting compounds are reported as positive. False positive and false negative results are possible. Confirmatory testing required for definitive results. Current Interpretive Data was last reviewed 2023. Phencyclidine, ur Not Detected CutOff 25 ng/mL TEDDY KEATING ([place]) Comment: Interpretive Data - Phencyclidine: Samples containing greater than 25 ng/mL phencyclidine or other cross-reacting compounds are reported as positive. False positive and false negative results are possible. Confirmatory testing required for definitive results. Current Interpretive Data was last reviewed 2023. Urine Creatinine 55 mg/dL BIB KEATING ([place]) Comment: Interpretive Data Urine Creatinine: < 10 mg/dL is extremely dilute = or > 10 but < 20 mg/dL is dilute = or > 20 mg/dL is normal Current Interpretive Data was last revised on 2018. Urine 08/27/2025 1:23 PM CDT 08/27/2025 1:26 PM CDT Narrative TEDDY KEATING ([place]) - 08/27/2025 1:49 PM CDT Drug of Abuse screening is performed by immunoassay for medical purposes only. This is not to be used for Pain Management purposes. us Zeenat Larry NP LAB URINE ORDERABLES Final Re sult TEDDY KEATING ([place]) 1 [facility] Department [place] [address] * eGFR (08/27/2025 12:58 PM CDT) eGFR >90 >=60 mL/min/1. 73 m2 Comment: Interpretive Data Reference Interval Normal >/= 90 mL/min/1.73m2 Mildly decreased* 60 - 89 mL/min/1.73m2 Mildly to moderately decreased 45 - 59 mL/min/1.73m2 Moderately to severely decreased 30 - 44 mL/min/1.73m2 Severely decreased 15 - 29 mL/min/1.73m2 Kidney Failure < 15 mL/min/1.73m2 *Relative to young adult level Estimated glomerular filtration rate is determined by the 2020 CKD-EPI equation recommended by the National Kidney Foundation (A Unifying Approach to GFR Estimation: Recommendations of the NKF-ASK Task Force on Reassessing the Inclusion of Race in Diagnosing Kidney Disease, JASN 2020). The CKD-EPI equation should not be used for patients with unstable renal function and has not been validated in children and those over 70. Current interpretive data was last reviewed 2021. Blood 08/27/2025 12:5 8 PM CDT 08/27/2025 1:01 PM CDT us Zeenat Larry NP LAB BLOOD ORDERABLES Final Re sult TEDDY [facility] ([place]) 1 [facility] Department [place] [address] * (ABNORMAL) Differential, auto (08/27/2025 12:58 PM CDT) Neutrophil abs 7.82(H) 1.50 - 6.50 K/cumm Imm gran abs 0.04 0.00 - 0.10 K/cumm [facility] ([place]) Lymphocyte abs 1.84 0.80 - 3.30 K/cumm [facility] ([place]) Monocyte abs 0.38 0.20 - 0.80 K/cumm [facility] ([place]) Eosinophil abs 0.24 0.00 - 0.50 K/cumm [facility] ([place]) Basophil abs 0.04 0.00 - 0.10 K/cumm [facility] ([place]) Neutrophil pct 75.4 % [facility] ([place]) Comment: Interpretive Data Percent cell count reference ranges are not reported, since discordance with absolute values may lead to misinterpretation of CBC data. Current Interpretive Data was last revised on 2018. Imm gran pct 0.4 % [facility] ([place]) Comment: Interpretive Data Percent cell count reference ranges are not reported, since discordance with absolute values may lead to misinterpretation of CBC data. Current Interpretive Data was last revised on 2018. Lymphocyte pct 17.8 % [facility] ([place]) Comment: Interpretive Data Percent cell count reference ranges are not reported, since discordance with absolute values may lead to misinterpretation of CBC data. Current Interpretive Data was last revised on 2018. Monocyte pct 3.7 % [facility] ([place]) Comment: Interpretive Data Percent cell count reference ranges are not reported, since discordance with absolute values may lead to misinterpretation of CBC data. Current Interpretive Data was last revised on 2018. Eosinophil pct 2.3 % [facility] ([place]) Comment: Interpretive Data Percent cell count reference ranges are not reported, since discordance with absolute values may lead to misinterpretation of CBC data. Current Interpretive Data was last revised on 2018. Basophil pct 0.4 % [facility] ([place]) Comment: Interpretive Data Percent cell count reference ranges are not reported, since discordance with absolute values may lead to misinterpretation of CBC data. Current Interpretive Data was last revised on 2018. Blood 08/27/2025 12:5 8 PM CDT 08/27/2025 1:01 PM CDT us Zeenat Larry FANCY WIRE DRAWER LAB BLOOD ORDERABLES Final Re sult TEDDY KEATING ([place]) 1 [facility] Department [place] [address] * (ABNORMAL) CBC with auto differential (08/27/2025 12:58 PM CDT) WBC 10.36(H) 3.80 - 9.90 K/cumm Hgb 11.2(L) 11.9 - 15.5 g/dL [facility] ([place]) Hct 32.3(L) 35.6 - 45.5 % [facility] ([place]) Plt 236 150 - 400 K/cumm [facility] ([place]) MPV 9.6 9.1 - 12.3 fL [facility] ([place]) RBC 3.70(L) 3.90 - 5.20 M/cumm [facility] ([place]) MCV 87.3 81.3 - 96.4 fL [facility] ([place]) MCH 30.3 27.1 - 33.3 pg [facility] ([place]) MCHC 34.7 32.3 - 35.7 g/dL [facility] ([place]) RDW CV 12.9 11.1 - 14.9 % [facility] ([place]) RDW SD 40.4 35.7 - 48.1 fL [facility] ([place]) NRBC abs 0.00 0.00 - 0.01 K/cumm [facility] ([place]) Blood 08/27/2025 12:5 8 PM CDT 08/27/2025 1:01 PM CDT Zeenat Larry FANCY WIRE DRAWER LAB BLOOD ORDERABLES Final Re sult Performing Organization Address City/[facility]/ZIP Co de Phone Number TEDDY [place]) 1 [facility] [place] [address] * Ethanol (08/27/2025 12:58 PM CDT) Ethanol <10 <=10 mg/dL Comment: Interpretive Data Legal limit of intoxication > or = 80 mg/dL Levels > or = 400 mg/dL are potentially TOXIC. Current interpretive data was last revised on 2019. Blood 08/27/2025 12:5 8 PM CDT 08/27/2025 1:01 PM CDT Zeenat Larry FANCY WIRE DRAWER LAB BLOOD ORDERABLES Final Re sult Performing Organization Address City/[facility]/ZIP Co de Phone Number TEDDY KEATING ([place]) [address] Department [place] [address] * (ABNORMAL) Comprehensive metabolic panel (08/27/2025 12:58 PM CDT) Sodium 136 135 - 145 mmol/L Potassium, pl 3.8 3.3 - 4.9 mmol/L [facility] ([place]) Chloride 104 97 - 110 mmol/L [facility] ([place]) CO2 23 22 - 32 mmol/L [facility] ([place]) Anion gap 9 2 - 15 mmol/L [facility] ([place]) BUN 8 6 - 25 mg/dL [facility] ([place]) Creatinine 0.59(L) 0.60 - 1.10 mg/dL [facility] ([place]) Glucose 107 70 - 199 mg/dL [facility] ([place]) Comment: Interpretive Data Fasting glucose >/= 126 mg/dl is diagnostic for diabetes. Fasting is defined as no caloric intake for at least 8 hours. Fasting glucose between 100 mg/dl to 125 mg/dl is diagnostic of prediabetes. In a patient with classic symptoms of hyperglycemia or hyperglycemic crisis, a random glucose >/= 200 mg/dl is diagnostic for diabetes. In the absence of unequivocal hyperglycemia, results should be confirmed by repeat testing. The classification and Diagnosis of Diabetes Diabetes Care 2021; 46: S19-S40. Current interpretive data was last revised 2022. Calcium 9.0 8.5 - 10.3 mg/dL [facility] ([place]) Bilirubin, total 0.4 0.1 - 1.2 mg/dL [facility] ([place]) Protein, pl 5.9(L) 6.5 - 8.5 g/dL [facility] ([place]) Albumin 3.4(L) 3.5 - 5.0 g/dL [facility] ([place]) Alk phos 124 40 - 130 Units/L [facility] ([place]) ALT 82(H) 7 - 45 Units/L [facility] ([place]) AST 112(H) 10 - 45 Units/L [facility] ([place]) Comment:Hemolysis present. R esults may be affected. Blood 08/27/2025 12:5 8 PM CDT 08/27/2025 1:01 PM CDT us Zeenat Larry NP LAB BLOOD ORDERABLES Final Re sult TEDDY KEATING ([place]) 1 [facility] Department [place] [address] * Pap with reflex to High Risk HPV and Genotyping (Cytology Component) (05/01/2025 12:18 PM CDT) Thin prep (Pap test) 05/01/2025 12:18 PM CDT 05/01/2025 12:18 PM CDT Narrative PATHOLOGY CH - 05/06/2025 9:45 AM CDT [facility] Department of Pathology [address] [place], [place] [id number] Final Report Note to Patients: This report may contain a detailed description of human tissue sent by a health care provider to the laboratory for pathologic evaluation. The content of this report is essential for diagnosis and may provide important critical findings. This information may be unfamiliar to patients to review without a medical professional present. It is advised that the patient review this report in the presence of a health care provider who can answer questions and explain the details. Patient Name: CHICHI PLATA Address: 63 [place] [address] Gender: F : 1995 (Age: 30) Service: Location: [facility] : [id number] [facility] #: [id number] Patient Type: SPECIMEN Taken: 05/01/2025 Received: 05/01/2025 Accessioned:: 05/02/2025 Reported: 05/06/2025 Physician(s): Zac Yip M.D. Diagnosis: SOURCE OF SPECIMEN Imaged Thinprep Pap Test w/ Reflex HPV - [employer] Specialist Cytologic Material: STATEMENT OF ADEQUACY - Specimen satisfactory for interpretation; endocervical/transformation zone component absent or insufficient GENERAL CATEGORIZATION: - Negative for intraepithelial lesion or malignancy ROSEMARY Gonzalez(ASCP) Report Electronically Reviewed and Signed Out By ROSEMARY Gonzalez(ASCP) 05/06/2025 09:45:20Specimen(s) Received: A: Imaged Thinprep Pap Test w/ Reflex HPV - [employer] Specialist Cytologic Material Clinical History: Menstrual History: The Pap test is a screening test used to aid in the detection of cervical cancer and its precursors. It should not be the sole means by which malignant and premalignant lesions are diagnosed. Both false negative and false positive results may occur. It also has poor sensitivity for the detection of endometrial lesions and should not be used to evaluate suspected endometrial abnormalities. For these reasons it is most important to obtain Pap tests at regular intervals. The performance characteristics of some immunohistochemical stains, fluorescence in-situ hybridization tests and immunophenotyping by flow cytometry cited in this report (if any) were determined by the Surgical Pathology Department at [facility] as part of an ongoing quality lead program and in compliance with federally mandated regulations drawn from the Clinical Laboratory Improvement Act of 1988 (CLIA '88). Some of these tests rely on the use of analyte specific reagents and are subject to specific labeling requirements by the US Food and Drug Administration. Such diagnostic tests may only be performed in a facility that is certified by the Department of Health and Human Services as a high complexity laboratory under CLIA '88. The FDA has determined that such clearance or approval is not necessary. This test is used for clinical purposes. It should not be regarded as investigational or for research. Nevertheless, federal rules concerning the medical use of analyte specific reagents require that the following disclaimer be attached to the report: This test was developed and its performance characteristics determined by the Surgical Pathology Department [facility]. It has not been cleared or approved by the U. S. Food and Drug Administration. Caron Regalado MD LAB CYTOLOGY [facility] Final Result PATHOLOGY [address] [place] [address] from Last 3 Months or Most Recently Relevant to Health Maintenance Insurance [employer] [place] [facility] Advance Directives For more information, please contact: [phone] * Full Code (Latest Code Status on File) Date Activated Date Inactivated Comments 10/08/2025 8:29 AM 10/09/2025 9:26 PM * Full Code Date Activated Date Inactivated Comments 10/08/2025 5:56 AM 10/08/2025 8:29 AM Full CPR i n case of cardiopulmonary arrest * Full Code Date Activated Date Inactivated Comments 02/18/2025 2:21 PM 02/19/2025 3:32 PM * Full Code Date Activated Date Inactivated Comments 09/05/2024 12:01 PM 09/06/2024 7:28 PM * Full Code Date Activated Date Inactivated Comments 05/03/2024 1:57 PM 05/05/2024 2:50 PM Care Teams Environmental Studies Faculty Member Relationship Specialty Start Date End Date No, Physician PCP - General 05/05/25 Caron Regalado MD [address] [place] [address] [address] Consulting Physician Obstetrics and Gynecology 04/20/24
--- OUTSIDE RECORDS SUMMARY | 2025-10-16 20:21 | XMS_ITS | Clinical Summary ---
Author Organization [facility] Address [address] [place] [address] Care Team Providers Care Concrete Fence Builder Name Role Phone Unavailable Primary Care Provider Unavailabl e Source Comments [facility],non-owned Affiliates and Associated Physician Practices is amultiple site organization consisting of ambulatory clinics and hospital sitesin [place], [place], [place] and [place]. This disclosure is being madepursuant to the Care Everywhere program and may not contain all information available regarding this patient. Last updated 18.[facility] [employer] Allergies No known active allergies Social History Tobacco Use Types Packs/Day Years Used Date Smoking Tobacco: Every Day Cigarettes Smokeless Tobacco: Never Alcohol Use Standard Drinks/Week Comments Not Currently 0 (1 standard drink = 0.6 oz pur e alcohol) Comments No Sex and Gender Information Value Date Recorded Sex Assigned at Not on file Legal Sex Female 5:38 AM CHARRER Gender Identity Not on file Sexual Orientation Not on file Last Filed Vital Signs Vital Sign Reading Time Taken Comments Blood Pressure 107/81 10/15/2021 12:00 PM CHARRER Pulse 112 10/15/2021 12:00 PM CHARRER Temperature 36.8 C (98.2 F) 10/15/2021 11:57 AM CHARRER Respiratory Rate 13 10/15/2021 12:00 PM CHARRER Oxygen Saturation 93% 10/15/2021 12:00 PM CHARRER Inhaled Oxygen Concentration - - Weight - - Height - - Body Mass Index - - Plan of Treatment Health Maintenance Due Date Last Done Comments HIV SCREENING 02/01/2012 HEPATITIS C SCREENING 01/27/2015 DTAP/TDAP/TD VACCINES (1 - Tdap) 02/01/2016 HEPATITIS B VACCINE (1 of 3 - 19+ 3-dose series) 02/01/2016 HPV VACCINE (1 - 3-dose SCDM series) 02/01/2024 DEPRESSION SCREENING 11/14/2024 COVID-19 VACCINE (1 - 2025-2 6 season) 2025 INFLUENZA VACCINE (#1) 2025 ZOSTER VACCINE (1 of 2) 2047 HIB VACCINE Aged Out No longer eligi ble based on patient's age to complete this topic MENINGOCOCCAL (Group B) VACC INE SHARED DECISION-MAKING Aged Out No longer eligibl e based on patient's age to complete this topic MENINGOCOCCAL GROUPS A/C/Y/W VACCINE Aged Out No longer eligible b ased on patient's age to complete this topic PNEUMOCOCCAL VACCINE Aged Out No long er eligible based on patient's age to complete this topic
--- OUTSIDE RECORDS SUMMARY | 2025-10-16 20:21 | XMS_ITS | Patient Health Record ---
Author Organization [facility] Address [address] [place] [address] Phone [phone] Care Team Providers Care Dry Wall Applicator Name Role Phone Michelle Fleder Primary Care Provider [phone] Kitty Pratt Unavailable [phone] Apolonia Marquis APRN Unavailable Imani Zepeda Unavailable Marina Muir Unavailable [phone] Allergies No Known Allergies Results Component Value Reference Range Flag Notes Buprenorphine and Metabolite (Urine test) Order date: 06/06/2025 Reviewed date:06/12/2025 08:20:56 AM Interpretation: Performing Lab:[facility], [address] [facility], RT[facility], Phone - [phone], Director - PhDAbudu Notes/Report: Clinical Information:CCU:[id number] LM Buprenorphine Positive A Confirmatio n performed by Mass Spectrometry Buprenorphine Positive A Buprenorphine Conf, MS, UR 328 Cutoff=10 ng/mL Norbuprenorphine Positive A Norbuprenorphine Conf, MS, UR >2000 Cutoff=10 ng/mL 14 Panel Urine Drug Screen Order date: 06/06/2025 Reviewed date:06/06/2025 02:15:06 PM Interpretation: Performing Lab: Notes/Report: THC neg JONAS neg MOP (OPI) neg AMP neg MET neg BAR neg BZO neg MDMA neg MTD neg OXY neg PCP neg BUP POS TCA neg FTY neg 14 Panel Urine Drug Screen Order date: 07/08/2025 Reviewed date:07/08/2025 10:15:37 AM Interpretation: Performing Lab: Notes/Report: THC neg JONAS neg MOP (OPI) neg AMP neg MET neg BAR neg BZO neg MDMA neg MTD neg OXY neg PCP neg BUP POS TCA neg FTY neg 14 Panel Urine Drug Screen Order date: 05/03/2025 Reviewed date:05/03/2025 03:26:15 PM Interpretation: Performing Lab: Notes/Report: THC neg JONAS neg MOP (OPI) neg AMP neg MET neg BAR neg BZO neg MDMA neg MTD neg OXY neg PCP neg BUP POS TCA neg FTY neg 14 Panel Urine Drug Screen Order date: 04/25/2025 Reviewed date:04/25/2025 01:35:46 PM Interpretation: Performing Lab: Notes/Report: THC neg JONAS neg MOP (OPI) neg AMP neg MET neg BAR neg BZO neg MDMA neg MTD neg OXY neg PCP neg BUP POS TCA neg FTY neg Reason For Referral No Information Medications Medication SIG (Take, Route, Frequency, Duration) Notes Start Date End Date Diagnosis (ICD Code) Status traZODone HCl 100 MG Tablet 1 tablet at bedtime Orally Once a day Not-Taking Narcan 4 MG/0.1ML Liquid as directed Nasally FOR OPIOID OVERDOSE 06/12/2024 Opioid use disorder (ICD_10 - F11.99) Active Vitamin Active Buprenorphine HCl 2 MG Tablet Sublingual 1 tablet under the tongue and allow to dissolve Sublingual Once a day; Duration: 30 days 07/08/2025 Opioid use disorder (ICD_10 - F11.99) Active Naloxone HCl 4 MG/0.1ML Liquid as directed Nasally FOR OPIOID OVERDOSE 04/25/2025 Opioid use disorder (ICD_10 - F11.99) Active Buprenorphine HCl 8 MG Tablet Sublingual 1 tablet under the tongue and allow to dissolve Sublingual twice a day; Duration: 30 days 07/08/2025 Opioid use disorder (ICD_10 - F11.99) Active Social History Tobacco Use: Social History Observation Description Date Details (start date - stop date) Current Smoker NA - NA Sex Observation Social History Observation Description Sex Observation Female Sexual Orientation Social History Observation Description Sexual Orientation Straight or heterose xual Gender Identity Social History Observation Description Gender Identity Female SDOH Assessments Date Tool Assessment Assessment LOINC Value Assessment Notes Goals Interventions 07/08/20 25 PRAPARE (LOINC: 34039-2) Total Score: 5 Date Completed/Upda adam: 07/10/20 24 What is your current housing situation? 04530-8 I have housing (OZ30922-5) Are you worried about losing your housing? 88563-8 No (LA32-8) What is the highest level of school that you have finished? 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 Check all that apply 96225-8 I do not have problems meeting my needs Has lack of transportation k ept you from medical appointments, meetings, work or from getting things needed for daily living? 51214-7 No (LA32-8) How often do you see or talk to people that you care about and feel close to? (For example: talking to friends on the phone, visiting friends or family, going to episcopalian or club meetings) 97607-7 3 to 5 times a week (NI73682-2) How stressed are you? Stress is when someone feels tense, nervous, anxious, or can\t sleep at night because their mind is troubled 73135-3 Quite a bit (LX87351-6) In the past year have you sp ent more than 2 nights in a row in a mcc, alf, chcf center, or juvenile correctional facility? 21785-6 No (LA32-8) Do you feel physically and emotionally safe where you currently live? 82050-2 No (LA32-8) In the past year, have you b een afraid of your partner or ex-partner? 20746-3 No (LA32-8) Are you a refugee? No What country are you from? [place] PRAPARE Score: 5 Social History Social Determinants Social Info Question Answer Notes PRAPARE Date Completed/Updated: 07/10/2024 What is your current housing situation? I have h ousing Are you worried about losing your housing? No What is the highest level of school that you have finished? 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 Check all that apply I do not have problems meeting my needs Has lack of transportation k ept you from medical appointments, meetings, work or from getting things needed for daily living? No How often do you see or talk to people that you care about and feel close to? (For example: talking to friends on the phone, visiting friends or family, going to episcopalian or club meetings) 3 to 5 times a week How stressed are you? Stress is when someone feels tense, nervous, anxious, or can\t sleep at night because their mind is troubled Quite a bit In the past year have you sp ent more than 2 nights in a row in a mcc, alf, chcf center, or juvenile correctional facility? No Are you a refugee? No What country are you from? [place] [facility] Do you feel physically and e motionally safe where you currently live? No In the past year, have you b een afraid of your partner or ex-partner? No PRAPARE Score: 5 Miscellaneous Social Info Question Answer Notes Method of learning: Preferred method of learning: Demo nstration Primary Social History Social Info Question Answer Notes Living Arrangement Living Arrangement: Dependent Alvina kelly Is this a supportive environment? Yes Living with: Parent(s) Single Question Alcohol Screening How ma ny times in the past year have you had (4 for women, or 5 for men) or more drinks in a day? 0 Employment Status Employment Status: Unemployed Illicit Substance Usage Illicit Substance Usage: Yes Interested in quitting: Yes Alcohol Use Alcohol Use Frequency: Never Drugs/Alcohol: Social Info Question Answer Notes Alcohol Screen (Audit-C) Did you have a drink containing alcohol in the past year? No Points 0 Interpretation Negative Drugs Have you used drugs other than those for medical reasons in the past 12 months? Yes Heroin? No How many months ago did you last use? last use 0 Are you in a treatment program? Yes on detox unit Prescription opiates? Yes fentanyl Methamphetamine? Yes Drug/Alcohol: Social Info Question Answer Notes AUDIT-C (Standard) Did you have a drink containing alcohol in the past year? No Points 0 Interpretation Negative Tobacco Use: Social Info Question Answer Notes Tobacco Control (Standard) Tobacco use: Current smoker Additional Findings: Tobacco user Light cigarett e smoker (1-9 cigs/day) Additional Details Category Social Info Options Details Past Medication Use Do you use nicotine other than cig arettes? no Drugs/Alcohol: Do you drink alcohol? No Section Notes: Problems Problem Type SNOMED Code ICD Code Dates Problem Status W/U Status Risk Notes Problem Tobacco user (702739969) Nicotine dependence, unspecified, uncomplicated (F17.200) Added On:2021 Active confirmed Problem Tobacco dependence (01450402) Tobacco dependence (F17.200) Added On:2019 Active confirmed Problem (16517694) (Z33.1) Added On:2024 Onset Date: Active confirmed Problem Sleep disorder (84663464) Sleep disorder (G47.9) Added On:2018 Active confirmed Problem Overweight (572430155) Over weight (E66.3) Added On:2024 Active confirmed Problem Radicular pain (71313370) Nerve pain (M79.2) Added On:2018 Active confirmed Problem Opioid dependence (31339872) Opioid use disorder, severe (F11.20) Added On:2018 Active confirmed Problem Cigarette smoker (75025812) Cigarette smoker (F17.210) Added On:2024 Active confirmed Problem Opioid use disorder (8096035336) Opioid use disorder (F11.99) Added On:2019 Active confirmed Vital Signs Vital Sign Value Notes Appt Date Heart Rate 103 /min 07/08/2025 Temperature 97 degrees Fahrenheit 2024 Respiratory Rate 16 /min 07/08/2025 Blood pressure diastolic 60 mm Hg Oximetry 98 % 07/08/2025 Height 66 in 07/08/2025 Blood pressure systolic 128 mm Hg 06/15 Weight 170.4 lbs 07/08/2025 BMI 27.5 kg/m2 07/08/2025 Encounters Date Time Type Facility Location Provider Diagnosis 5 01:40 PM Office Visit, Est Pt., Level 3 ([address]) [address] [place] [address] Imani Zepeda Opioid use disorder F11.99 and Z33.1 5 02:40 PM MEDICAL [place] ([address]) [address] [place] [address] Kitty Pratt Opioid use disorder F11.99 and Z33.1 5 02:00 PM SPECIMEN HANDLING ([address]) [address] [place] [address] Imani Zepeda Opioid use disorder F11.99 and Z33.1 5 10:20 AM MEDICAL [place] ([address]) [address] [address] Apolonia Marquis Opioid use disorder F11.99 and Cigarette smoker F17.210 5 08:47 AM Telephone Encounter [facility] [place] [address] Marina Muir 5 01:17 PM Telephone Encounter [facility] [address] Imani Zepeda 5 01:53 PM Telephone Encounter [facility] [address] Apolonia Marquis Assessments Encounter Date Diagnosis (ICD Code) Assessment Notes Treatment Notes Section Notes 04/25/2025 (ICD-10 - Z33.1) 05/03/2025 (ICD-10 - Z33.1) 07/08/2025 Cigarette smoker (ICD-10 - F17.210) 04/25/2025 Opioid use disorder (ICD-10 - F11.99) 05/03/2025 Opioid use disorder (ICD-10 - F11.99) May self-administer or be administered own oral medication per [place] Protocols. Provided informed consent with understanding of side effects, risks and benefits as well as alternative treatments as previously discussed and with the above recommended medications ang other aspects of the treatment program. Agrees to return sooner if symptoms worsen or suicidal or homicidal ideations occur. support and education provided concerning illness and treatment plan, risks and benefits, pt verbalized understanding of the same and agreeable - presents via secure Zoom connection for MAT walk in clinic. Denies concerns, misstepts. Admits cravings and thoughts, several times weekly - Feels Suboxone at current dose has been working ok, prefers to titrate Suboxone, requesting to follow up in 4 weeks due to job and kids, - continue Suboxone for OUD, evaluate at follow up in 4 weeks - [place]- no concerns - UDS-no concerns++BUP 06/06/2025 Opioid use disorder (ICD-10 - F11.99) 07/08/2025 Opioid use disorder (ICD-10 - F11.99) 06/06/2025 (ICD-10 - Z33.1) 04/25/2025 Other Discussed risks and benefits of buprenorphine use during . Cigarette smoking during increase risks of adverse outcomes including LBW, and other complications. Encouraged tobacco cessation. labwork ordered by OB. Discussed importance of care. *[facility] warm hand-off including ultrasound dating and visit summary in patient documents Patient agrees to take medication as prescribed. Discussed medication side effects, adverse effects, risks, benefits, as well as interactions. Encouraged non-use of opioids and other illicit substances. Has naloxone. Discontinuing buprenorphine increases the risk of overdose upon return to illicit opioid use. Use of alcohol or benzodiazepines with buprenorphine increases the risk of overdose and . Education provided about safe storage of medications. Encouraged participation in recovery groups/counseling services. Contact office with questions or concerns. 06/06/2025 Other Patient agrees to take medication as prescribed. Discussed medication side effects, adverse effects, risks, benefits, as well as interactions. Encouraged non-use of opioids and other illicit substances. Has naloxone. Discontinuing buprenorphine increases the risk of overdose upon return to illicit opioid use. Use of alcohol or benzodiazepines with buprenorphine increases the risk of overdose and . Education provided about safe storage of medications. Encouraged participation in recovery groups/counseling services. Contact office with questions or concerns. 07/08/2025 Other Patient agrees to take medication as prescribed. Discussed medication side effects, adverse effects, risks, benefits, as well as interactions. Encouraged non-use of opioids. Encouraged participation in recovery groups. Patient may contact office with questions or concerns. Plan Of Treatment No Information Insurance Providers Payer Name Payer Address Payer Phone Subscriber Number Group Number Insured Name Patient Relationship to Insured Coverage Start Date Coverage End Date [facility] [address] [place] [address] [id number] Samina Borrero Self - patient is the insured 8 1 [facility] Att Claims Department [address] [place] [address] [id number] Samina Borrero Self - patient is the insured 3 MEDICAID [facility] [place] [address] [id number] Samina Borrero Self - patient is the insured 3 3 [facility] Claims Department [address] [facility] [address] [place] [address] [id number] Samina Borrero Self - patient is the insured 5 Medical (General) History Medical History History ICD Code Nerve pain M79.2 Opioid use disorder, severe F11.20 Sleep disorder G47.9 Opioid use disorder F11.99 Tobacco dependence F17.200 Surgical History Surgery Date(Month/Year) c section 04/2024 Hospitalization History Reason Date(Month/Year) c section 04/2024
--- OUTSIDE RECORDS SUMMARY | 2025-10-16 20:22 | XMS_ITS | Encounter Summary ---
Author Organization [facility] Healthcare Address [address] [place] [address] Care Team Providers Care Joist Setter Name Role Phone Rula Vilchis NP Primary Care Provider [phone] Caron Regalado MD Unavailable [phone] No, Physician Primary Care Provider [phone] Encounter Details Date Type Department Care Team (Late st Contact Info) Description 05/03/2024 Documentation [facility] Warm Hand Off Program [address] [place] [address] Bernadette Marquez Social History Tobacco Use Types Packs/Day Years Used Date Smoking Tobacco: Every Day Cigarettes 0.5 12.9 Started: 2012 Vaping Started: 2020 Smokeless Tobacco: Never Alcohol Use Standard Drinks/Week Comments Yes 0 (1 standard drink = 0.6 oz pur e alcohol) occasional [facility] Utilities Answer Date Recorded In the past 12 months has [facility] [employer], gas, oil, or water [employer] threatened to shut off services in your home? Yes 05/03/2024 Humiliation, Afraid, Rape, and Kick questionnair e Answer Date Recorded Within the last year, have y ou been afraid of your partner or ex-partner? No 05/03/2024 Within the last year, have y ou been humiliated or emotionally abused in other ways by your partner or ex-partner? No Within the last year, have y ou been kicked, hit, slapped, or otherwise physically hurt by your partner or ex-partner? No 05/03/2024 Within the last year, have y ou been raped or forced to have any kind of sexual activity by your partner or ex-partner? No 05/03/2024 Social Connection and Isolation Panel Answer Date Recorded In a typical week, how many times do you talk on the phone with family, friends, or neighbors? More than three times a week 05/03/2024 How often do you get togethe r with friends or relatives? More than three times a week 05/03/2024 How often do you attend chur or church services? Never 05/03/2024 Do you belong to any clubs o r organizations such as episcopalian groups, unions, fraternal or athletic groups, or school groups? No 05/03/2024 How often do you attend meet ings of the clubs or organizations you belong to? Never 05/03/2024 Are you , , di vorced, , never , or living with a partner? Never 05/03/2024 AUDIT-C Answer Date Recorded Q1: How often do you have a drink containing alcohol? Never 05/03/2024 Q2: How many drinks containi ng alcohol do you have on a typical day when you are drinking? Patient does not drink Q3: How often do you have si x or more drinks on one occasion? Never 05/03/2024 Overall Financial Resource Strain (CARDIA) Answe r Date Recorded How hard is it for you to pa y for the very basics like food, housing, medical care, and heating? Not very hard 05/03/2024 PHQ-2 Answer Date Recorded PHQ-2 Total Score 3 05/03/2024 [facility] Occupational Stress Questionnaire Answer Date Recorded Do you feel stress - tense, restless, nervous, or anxious, or unable to sleep at night because your mind is troubled all the time - these days? Rather much 05/03/2024 Exercise Vital Sign Answer Date Recorde d On average, how many days pe r week do you engage in moderate to strenuous exercise (like a brisk walk)? 5 days 05/03/2024 On average, how many minutes do you engage in exercise at this level? 40 min 05/03/2024 Hunger Vital Sign Answer Date Recorded Within the past 12 months, y ou worried that your food would run out before you got the money to buy more. Never true 05/03/20 24 Within the past 12 months, t he food you bought just didn't last and you didn't have money to get more. Never true 05/03/2024 PRAPARE - Transportation Answer Date Re corded In the past 12 months, has l ack of transportation kept you from medical appointments or from getting medications? Yes 04/15 In the past 12 months, has l ack of transportation kept you from meetings, work, or from getting things needed for daily living? Yes 05/03/2024 Housing Stability Vital Sign Answer Antelmo e [...] place to sleep or slept in a senior care (including now)? No 02/02/2024 [place] Depression Scale Answer Date Recorded [place] Depression Scale Total 10 05/03/2024 The thought of harming myself has occurred to me . Never 05/03/2024 Housing Stability Vital Sign Answer Antelmo e Recorded In the last 12 months, was t here a time when you were not able to pay the mortgage or rent on time? No 05/03/2024 In the past 12 months, how m any times have you moved where you were living? 0 05/03/2024 At any time in the past 12 m [facility], were you homeless or living in a senior care (including now)? No 05/03/2024 Personal Safety Answer Date Recorded Have you ever been in or are you currently in a harmful physical or emotional relationship or is someone making you feel afraid or unsafe? Denies 05/03/2024 Comments No Sex and Gender Information Value Date Recorded Sex Assigned at Not on file Legal Sex Female 8:47 PM [employer] Gender Identity Not on file Sexual Orientation Not on file documented as of this encounter Functional Status * Difference in Last Two Salvador Scores Answer Date of Assessment Author 1 05/05/2024 8:00 AM DORONT Pretty Woodward RN * Mesa Fall Risk Question Answer Date of Assessment Author History of Falling 0 05/05/2024 8:00 AM Pretty Butcher RN Secondary Diagnosis 15 05/05/2024 8:00 AM Pretty Singh RN Ambulatory Aids 0 05/05/2024 8:00 AM CDT Pretty Alfaro RN Intravenous Therapy/Heparin/Saline Lock 0 05/05/2024 8:00 AM Pretty Butcher, LASHELL Gait/Transferring 0 05/05/2024 8:00 AM CDT Pretty Woodward RN Mental Status 0 05/05/2024 8:00 AM CDT Pretty Arango RN Morse Fall Risk Score (Score >= 45 places fall precaution order) 15 05/05/2024 8:00 AM Pretty Butcher RN Prior Fall Event (Autopopulated from EMR) None found 05/05/2024 8:00 AM Tej Butcher RN * Salvador Scale Question Answer Date of Assessment Author Sensory Perceptions 4 05/05/2024 8:00 AM Pretty Singh RN Moisture 4 05/05/2024 8:00 AM Pretty Mcdonald RN Activity 4 05/05/2024 8:00 AM Pretty Mcdonald RN Mobility 4 05/05/2024 8:00 AM Pretty Mcdonald RN Nutrition 3 05/05/2024 8:00 AM CDT Pretty Villeda RN Friction and Shear 3 05/05/2024 8:00 AM Pretty Butcher RN Salvador Scale Score 22 05/05/2024 8:00 AM DORONT Pretty Woodward RN * Question Answer Date of Assessment Author BP Location Right arm 05/05/2024 8:02 AM CDT Simi Walden BP Method Automatic 05/05/2024 8:02 AM CDT Simi Walden MAP (mmHg) 86 05/05/2024 3:15 AM CDT Deborah Garcia * Fall Risk Interventions Question Answer Date of Assessment Author All Low Fall Interventions Applied Yes 05/05/2024 8:00 AM Pretty Butcher RN All Moderate Fall Interventi ons Applied No 05/05/2024 8:00 AM Pretty Butcher RN All High Fall Risk Intervent ions Applied No 05/05/2024 8:00 AM Pretty Butcher RN * B.M.A.T. - Bedside Mobility Assessment Tool for Nurses Question Answer Date of Assessment Author Is patient able to participate in the BMAT? Yes 05/05/2024 8:00 AM Tej Butcher RN BMAT Level Level 4 - Green 05/05/2024 8:00 AM CDPretty Ray Pe, RN * Question Answer Date of Assessment Author 1. Has the patient self-reported, presented with clinical signs of, or have a documented history of any of the following within the past 30 days? Active substance abuse 05/03/2024 2:47 PM Lupe Espana RN * Question Answer Date of Assessment Author Is the patient being treated today because it is known or suspected that they prepared, started, or tried to end their life? No 05/03/2024 2:47 PM Lupe Espana RN * Question Answer Date of Assessment Author 1. In the past month, have y ou wished you were or that you could go to sleep and not wake up? No 05/03/2024 2:47 PM Lupe Espana , LASHELL 2. In the past month, have y ou actually had any thoughts of killing yourself? No 05/03/2024 2:47 PM Lupe Espana , RN 6. Have you ever done anythi ng, started to do anything, or prepared to do anything to end your life? No 05/03/2024 2:47 PM Lupe Espana , LASHELL * Suicide Risk Level Answer Date of Assessment Author No risk level 05/03/2024 2:47 PM Lupe Espana, LASHELL * Self-Injurious Risk Level Answer Date of Assessment Author Low 05/03/2024 2:47 PM CDT Lupe Ledesma RN * Pressure Injury Prevention Question Answer Date of Assessment Author Pressure Ulcer Prevention Interventions Keep skin clean and dry (Sensory Perception/Moisture ) 05/05/2024 8:00 AM Pretty Butcher RN 2 Nurse Skin Assessment Richard 05/03/2024 2:4 7 PM DORONT Lupe Ledesma, LASHELL * Transdermal Patch Admission Assessment Question Answer Date of Assessment Author Transdermal Patch Assessment on Admission Not Present 05/03/2024 2:47 PM DORONT Lupe Ledesma RN * AUDIT-C Score Answer Date of Assessment Author 0 05/03/2024 12:13 PM CDT Bernadette Quezada * Alcohol Use Question Answer Date of Assessment Author Q1: How often do you have a drink containing alcohol? Never 05/03/2024 2:50 PM DORONT Lupe Ledesma RN Q2: How many drinks containing alcohol do you have on a typical day when you are drinking? Patient does not drink 05/03/2024 12:13 PM CDT Bernadette Marquez Q3: How often do you have six or more drinks on one occasion? Never 05/03/2024 12:13 PM Bernadette Rossi * Integumentary Question Answer Date of Assessment Author Skin Color Appropriate for ethnicity 05/05/2024 8:00 AM Pretty Butcher RN Skin Condition/Temp Warm;Dry 05/05/2024 8:00 AM Pretty Singh RN Skin Integrity Surgical incision 05/05/2024 8:00 AM Pretty Singh RN Skin Turgor Non-tenting 05/05/2024 8:00 AM Pretty Mcdonald RN Integumentary (WDL) X 05/05/2024 8:00 AM Pretty Singh RN Skin Location Surgical incision ( scar) - lower abdomen. 05/05/2024 8:00 AM Pretty Butcher RN * CINA Questions: Question Answer Date of Assessment Author Abdominal changes: Do you liao ve any pains in your abdomen? 0 05/05/2024 3:15 AM DORONT Adria Ochoa RN Changes in temperature: Do y ou feel hot or cold? 0 05/05/2024 3:15 AM DORONT Meera Ochoa RN Nausea and vomiting: Do you feel sick in your stomach? Have you vomited? 0 05/05/2024 3:15 AM DORONT Meera Ochoa RN Muscle aches: Do you have an y muscle cramps? 0 05/05/2024 3:15 AM CDT Meera Ochoa RN * CINA Observations: Question Answer Date of Assessment Author Maxx flesh 0 05/05/2024 3:15 AM CDT Meera Castellanos RN Nasal congestion 0 05/05/2024 3:15 AM CDT Meera Salcido RN Tremor 0 05/05/2024 3:15 AM CDT Meera Castellanos, RN Restlessness 0 05/05/2024 3:15 AM CDT Meera Castellanos, RN Lacrimation 0 05/05/2024 3:15 AM CDT Meera Castellanos, RN Sweating 0 05/05/2024 3:15 AM CDT Meera Castellanos, RN Yawning 0 05/05/2024 3:15 AM CDT Meera Castellanos RN Total score (Minimum score = 0, Maximum score = 31. The higher the score, the more severe the withdrawal symptom) 0 05/05/2024 3:15 AM CDT Meera Jo RN * Question Answer Date of Assessment Author Edema Generalized 05/04/2024 8:00 PM CDT Meera Castellanos RN * Question Answer Date of Assessment Author Affect Jenni 05/05/2024 8:00 AM CDT Pretty Villeda RN * Question Answer Date of Assessment Author Percent Meal Eaten (%) 75 05/04/2024 12:25 P M CDT Babatunde Thompson * Question Answer Date of Assessment Author BP Location Right arm 05/05/2024 8:02 AM CDT Simi Walden BP Method Automatic 05/05/2024 8:02 AM CDT Simi Walden * Fall Risk Interventions Question Answer Date of Assessment Author All Low Fall Interventions Applied Yes 05/05/2024 8:00 AM Pretty Butcher, LASHELL All Moderate Fall Interventi ons Applied No 05/05/2024 8:00 AM DORONT Pretty Woodward RN All High Fall Risk Intervent ions Applied No 05/05/2024 8:00 AM CDT Pretty Woodward RN * ADL Screening Question Answer Date of Assessment Author Patient's Vision Adequate to Safely Complete Daily Activities Yes 05/03/2024 2:47 PM DORONT Lupe Ledesma RN Patient's Judgement Adequate to Safely Complete Daily Activities Yes 05/03/2024 2:47 PM DORONT Lupe Ledesma RN Patient's Memory Adequate to Safely Complete Daily Activities Yes 05/03/2024 2:47 PM DORONT Lupe Ledesma RN Patient Able to Express Needs/Desires Yes 05/03/2024 2:47 PM DORONT Lupe Ledesma RN Dressing Independent 05/03/2024 2:47 PM CDT Lupe Ashford RN Grooming Independent 05/03/2024 2:47 PM CDT Lupe Ashford RN Feeding Independent 05/03/2024 2:47 PM CDT Lupe Ashford RN Bathing Independent 05/03/2024 2:47 PM CDT Lupe Ashford RN Toileting Independent 05/03/2024 2:47 PM DORONT Lupe Ashford RN In/Out Bed Independent 05/03/2024 2:47 PM DORONT Lupe Ashford RN Walks in Home Independent 05/03/2024 2:47 PM CDT Lupe Mitchell, RN Weakness of Legs None 05/03/2024 2:47 PM CDT Lupe Sahni RN Weakness of Arms/Hands None 05/03/2024 2:47 PM Lupe Espana RN Hearing - Right Ear Functional 05/03/2024 2:47 PM Lupe Pate RN Hearing - Left Ear Functional 05/03/2024 2:47 PM Lupe Espana RN Dominant hand? Right 05/03/2024 2:47 PM Lupe Herrera RN Decline in ADLs in last 2 weeks? No 05/03/2024 2:47 PM Lupe Espana , LASHELL * Therapy Consults Question Answer Date of Assessment Author PT Evaluation Needed 2 05/03/2024 2:47 PM C Lupe Lockett, LASHELL OT Evaluation Needed 2 05/03/2024 2:47 PM C Lupe Lockett RN CNC MAINTENANCE MECHANIC Evaluation Needed 2 05/03/2024 2:47 PM Lupe Espana, LASHELL * Assistive Devices Question Answer Date of Assessment Author Assistive Devices/DME None 05/03/2024 2:47 PM Lupe Espana, LASHELL * Criteria to assess Question Answer Date of Assessment Author Withdrawal Severity Trigger COWS/CINA (Opioid) 05/04/2024 8:04 AM Pretty Butcher RN * Clinical Opiate Withdrawal Scale Question Answer Date of Assessment Author Resting Pulse Rate 0 05/04/2024 8:04 AM Pretty Butcher RN GI Upset 0 05/04/2024 8:04 AM CDT Pretty Villeda RN Sweating 3 05/04/2024 8:04 AM CDT Pretty Villeda RN Restlessness 0 05/04/2024 8:04 AM CDT Pretty Villeda RN Tremor 0 05/04/2024 8:04 AM CDT Pretty Villeda RN Yawning 0 05/04/2024 8:04 AM DORONT Pretty Villeda RN Pupil size 1 05/04/2024 8:04 AM CDT Pretty Villeda RN Anxiety or irritability 0 05/04/2024 8:04 A M Pretty Butcher RN Bone or joint aches 0 05/04/2024 8:04 AM Pretty Singh RN Gooseflesh skin 0 05/04/2024 8:04 AM DORONT Pretty Alfaro RN Runny nose or tearing 0 05/04/2024 8:04 AM DORONT Pretty Woodward RN * Total Question Answer Date of Assessment Author Total 4 05/04/2024 8:04 AM Pretty Mcdonald RN * Speech/Swallow Screening Question Answer Date of Assessment Author Currently, does patient have difficulty swallowing; coughing/choking while swallowing, or feels like food is sticking No 05/03/2024 2:47 PM Lupe Espana RN In the past two weeks has the patient had changes in speaking or ability to comprehend conversation No 05/03/2024 2:47 PM Lupe Espana RN Currently, does patient require thickened liquids or dysphagia diet No 05/03/2024 2:47 PM Lupe Espana RN Patient is in need of CNC MAINTENANCE MECHANIC Order: No CNC MAINTENANCE MECHANIC order needed from this assessment 05/03/2024 2:47 PM Lupe Espana RN * Hygiene Question Answer Date of Assessment Author Reason not bathed/showered Patient/family refused bath/shower 05/04/2024 9:00 PM Meera Waters RN Bath Not bathed/showered 05/04/2024 9:00 PM Meera Vanegas RN documented as of this encounter Mental Status * Question Answer Entry Date Author Neuro (WDL) WDL 05/05/2024 8:00 AM Pretty Mcdonald RN documented in this encounter Plan of Treatment Not on file documented as of this encounter Visit Diagnoses Not on filedocumented in this encounter Care Teams Joist Setter Relationship Specialty Start Date End Date Rula Vilchis NP PCP - General Nurse Practitioner 09/03/21 05/04/25 No, Physician PCP - General 05/05/25 Caron Regalado MD [address] [place] [address] [address] Consulting Physician Obstetrics and Gynecology 04/20/24 documented as of this encounter
[2025-10-16 20:43] VITALS: BP 149/91; PULSE 99; RESP 18; TEMP 36.9; O2SAT 97
--- NOTE | 2025-10-16 21:16 | ED.WOUNDLAC ---
HPI - Wound/Laceration General Chief Complaint: Wound/Laceration Stated Complaint: site infection Time Seen by Provider: 10/16/25 20:57 History of Present Illness HPI narrative: Patient is a 30-year-old female who presents to the ER with lower abdominal pain and concern for infection. She reports she had a Cesarian section on October 08, 2025. Patient reports she was supposed to have her teddy out in 5-8 days but she has not made her follow-up appointment. She endorses increased redness to the site and intermittent sharp pain. Patient denies any recent fevers, purulence drainage from the site, or pain of palpation. She reports she had a Caesarean section one year ago and does not remember experiencing these symptoms afterwards. Patient reports she has minimal vaginal bleeding following delivery. Related Data Home Medications ?Medication ?Instructions ?Recorded ?Confirmed ?Last Taken ?Type buprenorphine 8 mg-naloxone 2 mg 1 tablet sublingual BID 03/02/22 03/02/22 Unknown History sublingual tablet Allergies Allergy/AdvReac Type Severity Reaction Status Date / Time No Known Allergies Allergy Verified 10/16/25 20:20 Review of Systems Review of Systems: All systems reviewed & are unremarkable except as noted in HPI and below PMFSH Past Medical History Medical History IV drug user Patient denies significant medical history Family History Family History Mother Hypertension Depression Anxiety Father Depression Anxiety Alcohol abuse Sibling Anxiety Depression Alcohol abuse Grandparent Alcohol abuse Diabetes mellitus Hypertension Social History Social History Social History: Caffeine-coffee/tea 2 cups daily Smoking packs per day: 0.5 Smoking cigarettes per day: 10.0 Years smoked: 7 Smoking pack-years: 3.50 Smoking status: Current every day smoker Tobacco type: cigarettes and smokeless tobacco Alcohol intake: never Substance use type: IV drugs Gender identity (if verbalized by the patient): Female Agree to blood products: No Exam Narrative: GENERAL: Well appearing, well-nourished, non-toxic, in no acute distress. HEAD: Normocephalic, atraumatic. NECK: Supple. No adenopathy, no masses. RESPIRATORY: Airway patent, respirations nonlabored. Clear to auscultation bilaterally, no rales, rhonchi, wheezing. CARDIOVASCULAR: Regular rate and rhythm without murmurs, rubs, or gallops. Peripheral pulses 2+ and equal bilaterally. ABDOMINAL: Soft, nontender, nondistended, no hepatosplenomegaly. Normoactive BS. MUSCULOSKELETAL: Moves all extremities. Strength/ROM intact without gross deformities. SKIN: Warm, dry, normal color. No rashes. Incision site well approximated, no visible. No purulent drainage, no areas of hardness/tenderness with palpation, no areas of significant redness. Mild irritation to sites were teddy are inserted in skin. NEURO: A&O X3. Speech clear. Cranial nerves II-XII intact. No ataxic movements. PSYCHIATRIC: Appropriate mood and affect. Normal interaction. Course Vital Signs Vital signs: Vital Signs Temperature 36.9 C 10/16/25 20:43 Pulse Rate 99 10/16/25 20:43 Respiratory Rate 18 10/16/25 20:43 Blood Pressure 149/91 H 10/16/25 20:43 Pulse Oximetry 97 10/16/25 20:43 Oxygen Delivery Room Air 10/16/25 20:43 Temperature 36.9 C 10/16/25 20:43 Pulse Rate 99 10/16/25 20:43 Respiratory Rate 18 10/16/25 20:43 Blood Pressure 149/91 H 10/16/25 20:43 Pulse Oximetry 97 10/16/25 20:43 Oxygen Delivery Room Air 10/16/25 20:43 MDM MDM Narrative Medical decision making narrative: Patient is a 30-year-old female who presents to the ER with lower abdominal pain and concern for infection. She reports she had a Cesarian section on October 08, 2025. Patient reports she was supposed to have her teddy out in 5-8 days but she has not made her follow-up appointment. She endorses increased redness to the site and intermittent sharp pain. Patient denies any recent fevers, purulence drainage from the site, or pain of palpation. She reports she had a Caesarean section one year ago and does not remember experiencing these symptoms afterwards. Patient reports she has minimal vaginal bleeding following delivery. Labs Ordered: Patient declined Diagnosis: Abdominal incision healing Consults: OBGYN (outpatient), already established Patient Education/Shared MDM: Patient's incision is healing well without any signs/symptoms of infection. She was strongly advised to follow-up with her OBGYN tomorrow morning for staple removal. Patient will not be discharged home with any new prescriptions. Strict return precautions provided. Patient verbalized understanding and is in agreement with plan. Vital signs stable at time of discharge. All questions answered. Differential Diagnosis Differential Diagnosis: Wound dehiscence, infection incision, cellulitis Discharge Plan Discharge Clinical Impression: History of abdominal surgery, Delivery by caesarean section, Stapled skin wound Patient Disposition: Home Condition: Stable Instructions: Antibiotic Form, Staple Care (ED) Additional Instructions: Your incision appears to be healing well. Please return to the ER with any worsening symptoms. Follow-up with your OBGYN as soon as possible, as discussed, for staple removal. Take all medications as prescribed, including regularly scheduled medications. Continues to take Tylenol and/or ibuprofen for pain control. Patient Language: Tamazight Prescriptions: No Action buprenorphine-naloxone 8-2 mg Tablet, Sublingual 1 tablet SUBLINGUAL BID Follow-up/Referrals: Yina,Caron Reis MD [Primary Care Provider, [facility]] Time of Disposition: 21:25
--- NOTE | 2025-10-16 21:28 | PC.NURSE ---
Patient left after talking with DISPENSARY TECHNICIAN-did not wait for registration or discharge paperwork. Patient did not appear satisfied with plan of care. Gait steady on departure
== END 2025-10-16 21:25 | disposition home or self-care (01) ==
PROVIDERS: Emergency Provider Registered Nurse; PCP Obstetrics & Gynecology
DX: O99.893 Other specified diseases and conditions complicating puerperium (principal); R10.30 Lower abdominal pain, unspecified; O99.335 Smoking (tobacco) complicating the puerperium; F17.220 Nicotine dependence, chewing tobacco, uncomplicated; F17.210 Nicotine dependence, cigarettes, uncomplicated
CPT/HCPCS: 99281